=== PATIENT | male | born 1980 | race Caucasian/White ===

== ENCOUNTER → 2016-06-12 | Outpatient (REF) | payer OTHER | LOC: M LAB REF 18:58 | PROVIDERS: ATTEND Physician Assistant | DX: J02.9 Acute pharyngitis, unspecified (principal) ==

== ENCOUNTER → 2016-12-28 | Outpatient (REF) | payer OTHER, BC | LOC: M LAB REF 16:45 | PROVIDERS: ATTEND Physician Assistant | DX: R19.7 Diarrhea, unspecified (principal) ==

== ENCOUNTER → 2017-11-11 | Outpatient (REF) | payer OTHER ==
[2017-11-11 12:25] LABS: CHOLESTEROL LEVEL 129 MG/DL (<200); CHOLESTEROL RISK RATIO 3.071 (<5); HDL CHOLESTEROL 42 MG/DL (>40); NON-HDL-C 87 MG/DL; TRIGLYCERIDES LEVEL 70 MG/DL (<150)
[2017-11-11 13:28] LABS: ESTIMATED AVERAGE GLUCOSE 105 MG/DL (60-110); HEMOGLOBIN A1c 5.3 %; TOTAL 25(OH) VITAMIN D 38.5 NG/ML (30.0-100.0)
[2017-11-11 13:30] LABS: TESTOSTERONE 258 NG/DL (241-827)
== END ==
LOC: M SFHCPLAZ 09:30
DX: Z13.1 Encounter for screening for diabetes mellitus (principal); Z13.220 Encounter for screening for lipoid disorders; R68.82 Decreased libido

== ENCOUNTER → 2019-06-11 | Outpatient (CLI) | payer BC, OTHER ==
--- NOTE | 2019-06-11 10:06 | REP ---
Clinical: Lower abdominal pain. Technique: Upright view of the chest with supine and upright views of the abdomen and pelvis. Findings: Frontal upright view of the chest demonstrates no acute cardiopulmonary process or free air below the diaphragm to suspect pneumoperitoneum. Supine and upright views of the abdomen and pelvis demonstrate nonspecific bowel gas pattern without obstruction or perforation. No organomegaly. No abnormal calcifications. Skeletal structures normal for age. Impression: Nonspecific bowel gas pattern. Electronically Signed by Kendrick Her MD 06/11/2019 09:58 A
== END ==
LOC: M ADAMS 09:30
PROVIDERS: ATTEND Physician Assistant
DX: R10.30 Lower abdominal pain, unspecified (principal)

== ENCOUNTER → 2019-06-11 | Outpatient (CLI) | payer OTHER ==
[2019-06-11 11:34] LABS: BASO # 0.1 10^3/uL (0.0-0.2); EOS # 0.3 10^3/uL (0.0-0.5); EOS % 4.5 % (0.0-3.0); HEMATOCRIT 44.2 % (42.0-52.0); HEMOGLOBIN 15.4 g/dl (13.5-17.5); LYMPH # 1.9 10^3/uL (1.5-5.0); LYMPH % 29.9 % (24.0-44.0); MEAN CORPUSCULAR HGB CONC 34.8 g/dl (32.0-36.5); MONO # 0.5 10^3/uL (0.0-0.8); MONO % 8.1 % (0.0-5.0); NEUTROPHILS # 3.5 10^3/uL (1.5-8.5); NEUTROPHILS % 56.2 % (36.0-66.0); PLATELET COUNT, AUTOMATED 240 10^3/uL (150-450); RED BLOOD COUNT 5.14 10^6/uL (4.30-6.10); WHITE BLOOD COUNT 6.3 10^3/uL (4.0-10.0)
[2019-06-11 11:42] LABS: ALT/SGPT 44 U/L (12-78); BILIRUBIN,TOTAL 1.3 MG/DL (0.2-1.0); BLOOD UREA NITROGEN 14 MG/DL (7-18); CARBON DIOXIDE LEVEL 29 MEQ/L (21-32); CHLORIDE LEVEL 106 MEQ/L (98-107); CREATININE FOR GFR 0.98 MG/DL (0.70-1.30); GLOMERULAR FILTRATION RATE > 60.0 (>60); GLUCOSE, FASTING 102 MG/DL (70-100); LIPASE 212 U/L (73-393); POTASSIUM SERUM 4.2 MEQ/L (3.5-5.1); SODIUM LEVEL 142 MEQ/L (136-145); TOTAL PROTEIN 7.4 GM/DL (6.4-8.2)
== END ==
LOC: M LABDRWAD 09:27
PROVIDERS: ATTEND Physician Assistant
DX: R10.30 Lower abdominal pain, unspecified (principal)

== ENCOUNTER → 2019-06-13 | Outpatient (CLI) | payer BC, OTHER ==
[~2019-06-13] MED LIST: GASTROGRAFIN SOLUTION 30ML (Q9963) As Ordered ONE; ISOVUE-370 76% 100ML VIAL (Q9967) As Ordered ONE
--- NOTE | 2019-06-13 11:53 | REP ---
Clinical: Acute lower abdominal pain. Technique: Axial contrast enhanced images from the lung bases to the pubic symphysis using oral (per protocol) and 100 ml Isovue 370 intravenous contrast material with coronal and sagittal re-formations. Comparison: None. Findings: Lung bases are clear. Visualized heart and pericardium normal. Fatty infiltration to the liver noted without focal hepatic lesion. Spleen, pancreas, gallbladder, bilateral adrenal glands and left kidney are normal. Right kidney includes 3.5 cm heterogeneous enhancing mass consistent with renal cell carcinoma unless proven otherwise. No associated adenopathy or significant perinephric stranding. The enteric system is without obstruction or acute inflammatory process. Normal terminal ileum and appendix are identified in the right lower quadrant. Pelvis demonstrates normal bladder and age appropriate prostate/seminal vesicles. No ascites. No free air. No adenopathy. Abdominal aorta normal. Musculoskeletal structures are intact without focal abnormality. Impression: 1. 3.5 cm heterogeneous enhancing right renal mass. Findings suggest renal cell carcinoma unless proven otherwise. Urology consultation recommended. No associated findings. 2. Hepatic steatosis without focal hepatic lesion. Electronically Signed by Kendrick Her MD 06/13/2019 11:44 A
== END ==
LOC: M RAD 09:21
PROVIDERS: ATTEND Physician Assistant
DX: R10.30 Lower abdominal pain, unspecified (principal); N28.89 Other specified disorders of kidney and ureter; K76.0 Fatty (change of) liver, not elsewhere classified
CPT/HCPCS: 74177; Q9963; Q9967

== ENCOUNTER → 2019-11-08 | Outpatient (CLI) | payer BC, OTHER ==
[2019-11-08 13:08] LABS: HEMATOCRIT 43.8 % (42.0-52.0); HEMOGLOBIN 15.1 g/dl (13.5-17.5); MEAN CORPUSCULAR HEMOGLOBIN 29.1 pg (27.0-33.0); MEAN CORPUSCULAR HGB CONC 34.5 g/dl (32.0-36.5); MEAN CORPUSCULAR VOLUME 84.4 fl (80.0-96.0); PLATELET COUNT, AUTOMATED 240 10^3/uL (150-450); RED BLOOD COUNT 5.19 10^6/uL (4.30-6.10); WHITE BLOOD COUNT 7.1 10^3/uL (4.0-10.0)
[2019-11-08 13:12] LABS: ALBUMIN 3.9 GM/DL (3.2-5.2); ALT/SGPT 60 U/L (12-78); BLOOD UREA NITROGEN 14 MG/DL (7-18); CALCIUM LEVEL 9.1 MG/DL (8.5-10.1); CARBON DIOXIDE LEVEL 30 MEQ/L (21-32); CHLORIDE LEVEL 102 MEQ/L (98-107); CREATININE FOR GFR 0.99 MG/DL (0.70-1.30); GLOMERULAR FILTRATION RATE > 60.0 (>60); GLUCOSE, FASTING 117 MG/DL (70-100); POTASSIUM SERUM 3.8 MEQ/L (3.5-5.1); SODIUM LEVEL 139 MEQ/L (136-145); TOTAL PROTEIN 7.8 GM/DL (6.4-8.2)
== END ==
LOC: M PLALAB 09:50
PROVIDERS: ATTEND Internal Medicine
DX: I10 Essential (primary) hypertension (principal); Z85.528 Personal history of other malignant neoplasm of kidney

== ENCOUNTER → 2020-01-30 | Outpatient (CLI) | payer BC, OTHER ==
[2020-01-30 14:15] LABS: BLOOD UREA NITROGEN 19 MG/DL (7-18); CALCIUM LEVEL 9.5 MG/DL (8.5-10.1); CARBON DIOXIDE LEVEL 26 MEQ/L (21-32); CHLORIDE LEVEL 103 MEQ/L (98-107); CREATININE FOR GFR 1.05 MG/DL (0.70-1.30); GLOMERULAR FILTRATION RATE > 60.0 (>60); GLUCOSE, FASTING 122 MG/DL (70-100); SODIUM LEVEL 136 MEQ/L (136-145)
== END ==
LOC: M PLALAB 09:12
PROVIDERS: ATTEND Urology
DX: C64.1 Malignant neoplasm of right kidney, except renal pelvis (principal)

== ENCOUNTER → 2020-04-25 | Outpatient (REF) | payer OTHER | LOC: M SFHCPLAZ 14:37 | PROVIDERS: ATTEND Internal Medicine | DX: M10.9 Gout, unspecified (principal) ==

== ENCOUNTER → 2020-07-18 | Outpatient (CLI) | payer OTHER ==
[2020-07-18 10:26] LABS: BLOOD UREA NITROGEN 20 MG/DL (7-18); CALCIUM LEVEL 9.1 MG/DL (8.5-10.1); CARBON DIOXIDE LEVEL 33 MEQ/L (21-32); CHLORIDE LEVEL 99 MEQ/L (98-107); CREATININE FOR GFR 0.98 MG/DL (0.70-1.30); GLOMERULAR FILTRATION RATE > 60.0 (>60); GLUCOSE, FASTING 113 MG/DL (70-100); POTASSIUM SERUM 4.1 MEQ/L (3.5-5.1); SODIUM LEVEL 137 MEQ/L (136-145)
== END ==
LOC: M PLALAB 08:37
PROVIDERS: ATTEND Urology
DX: C64.1 Malignant neoplasm of right kidney, except renal pelvis (principal)

== ENCOUNTER 2020-08-08 10:08 | Emergency (ER) | payer BC, OTHER ==
[~2020-08-08] VITALS: Ht 193 cm; Wt 174.3 kg
[2020-08-08] MEDS ORDERED: COLC0.6T47 PO (10:26)
[2020-08-08] MEDS ORDERED: LISI20TA33 PO (10:26)
[2020-08-08] MEDS ORDERED: CHLO25TA PO (10:26)
[2020-08-08] MEDS ORDERED: ZYLO300T6 PO (10:26)
[2020-08-08] MEDS ORDERED: FURO20TA2 PO (10:26)
[2020-08-08 12:05] LABS: BILIRUBIN, URINE MANUAL NEGATIVE (NEGATIVE); GLUCOSE, URINE (UA) MANUAL NEGATIVE (NEGATIVE); KETONE, URINE MANUAL NEGATIVE (NEGATIVE); UROBILINOGEN, URINE MANUAL NORMAL (NORMAL)
[2020-08-08 12:10] LABS: BASO # 0.1 10^3/uL (0.0-0.2); BASO % 0.7 % (0.0-1.0); EOS # 0.3 10^3/uL (0.0-0.5); EOS % 4.2 % (0.0-3.0); HEMATOCRIT 45.7 % (42.0-52.0); HEMOGLOBIN 16.3 g/dl (13.5-17.5); LYMPH # 1.8 10^3/uL (1.5-5.0); LYMPH % 22.2 % (24.0-44.0); MEAN CORPUSCULAR HEMOGLOBIN 30.4 pg (27.0-33.0); MEAN CORPUSCULAR HGB CONC 35.7 g/dl (32.0-36.5); MEAN CORPUSCULAR VOLUME 85.3 fl (80.0-96.0); MONO # 0.6 10^3/uL (0.0-0.8); MONO % 7.5 % (2.0-8.0); NEUTROPHILS # 5.3 10^3/uL (1.5-8.5); PLATELET COUNT, AUTOMATED 281 10^3/uL (150-450); RED BLOOD COUNT 5.36 10^6/uL (4.30-6.10); WHITE BLOOD COUNT 8.2 10^3/uL (4.0-10.0)
--- NOTE | 2020-08-08 12:26 | REP ---
INDICATION: ruq/flank pain. FINDINGS: Multiple ultrasonographic images of the liver show the hepatic parenchymal echo texture to appear unremarkable. There are no focal masses. There is no intrahepatic ductal dilatation. The common bile duct measures approximately 5.6 mm in its greatest transverse dimension. Multiple ultrasonographic images of the gallbladder show no focal or diffuse gallbladder wall thickening. There are no echogenic foci within the gallbladder lumen, which casts acoustic shadows. There is no pericholecystic edema. Images of the pancreatic region show no gross abnormality. The imaged portion of the right kidney is unremarkable. The patient is status post partial right nephrectomy IMPRESSION: Unremarkable right upper quadrant ultrasound. Accredited by the [employer] in General Ultrasound. <Electronically signed by Curt Golden > 08/08/20 1998
[2020-08-08 12:29] LABS: ALBUMIN 4.4 GM/DL (3.2-5.2); BILIRUBIN,DIRECT 0.4 MG/DL (0.0-0.2); BILIRUBIN,TOTAL 1.3 MG/DL (0.2-1.0); TOTAL PROTEIN 8.2 GM/DL (6.4-8.2)
[2020-08-08] MEDS ORDERED: KETO10TAB PO (13:29)
[2020-08-08 13:45] VITALS: BP 141/84
== END 2020-08-08 13:48 | disposition home or self-care (01) ==
LOC: M ED 10:08
DX: M54.6 Pain in thoracic spine (principal); Z85.528 Personal history of other malignant neoplasm of kidney; Z90.5 Acquired absence of kidney

== ENCOUNTER → 2020-09-17 | Outpatient (REF) | payer OTHER ==
[~2020-09-17] MED LIST changes: +CHLO25TA PO; +COLC0.6T47 PO; +FURO20TA2 PO; -GASTROGRAFIN SOLUTION 30ML (Q9963) As Ordered ONE; -ISOVUE-370 76% 100ML VIAL (Q9967) As Ordered ONE; +KETO10TAB PO; +LISI20TA33 PO; +ZYLO300T6 PO
[2020-09-17 18:50] LABS: ALT/SGPT 73 U/L (12-78); BILIRUBIN,TOTAL 1.2 MG/DL (0.2-1.0); BLOOD UREA NITROGEN 18 MG/DL (7-18); CARBON DIOXIDE LEVEL 31 MEQ/L (21-32); CHLORIDE LEVEL 104 MEQ/L (98-107); CHOLESTEROL LEVEL 149 MG/DL (<200); CHOLESTEROL RISK RATIO 3.465 (<5); CREATININE FOR GFR 1.05 MG/DL (0.70-1.30); GLOMERULAR FILTRATION RATE > 60.0 (>60); GLUCOSE, FASTING 72 MG/DL (70-100); HDL CHOLESTEROL 43 MG/DL (>40); LDL CHOLESTEROL 70 MG/DL (<100); MAGNESIUM LEVEL 1.8 MG/DL (1.8-2.4); NON-HDL-C 106 MG/DL; POTASSIUM SERUM 3.7 MEQ/L (3.5-5.1); SODIUM LEVEL 141 MEQ/L (136-145); TOTAL PROTEIN 7.4 GM/DL (6.4-8.2); TRIGLYCERIDES LEVEL 179 MG/DL (<150); URIC ACID 6.7 MG/DL (3.5-7.2)
[2020-09-17 18:53] LABS: HEPATITIS B SURFACE ANTIBODY POSITIVE (POSITIVE)
[2020-09-17 19:04] LABS: HEPATITIS B SURFACE ANTIGEN NEGATIVE (NEGATIVE)
== END ==
LOC: M SFHCPLAZ 15:45
PROVIDERS: ATTEND Internal Medicine
DX: I10 Essential (primary) hypertension (principal); R79.89 Other specified abnormal findings of blood chemistry; M10.9 Gout, unspecified; G57.91 Unspecified mononeuropathy of right lower limb

== ENCOUNTER → 2020-09-18 | Outpatient (CLI) | payer BC, OTHER ==
--- NOTE | 2020-09-18 14:20 | REP ---
INDICATION: RT LEG PAIN SWELLING ? DVT COMPARISON: None. TECHNIQUE: Domínguez scale and color Doppler evaluation using linear high frequency transducer. FINDINGS: Ultrasound examination of the right lower extremity deep venous structures from the common femoral vein to the popliteal vein demonstrates normal compressibility flow and wave patterns in response to respiration and augmentation. There is no evidence for deep venous thrombosis. IMPRESSION: No evidence for deep venous thrombosis. <Electronically signed by Kendrick Her > 09/18/20 [id number]
== END ==
LOC: M RAD 13:32
PROVIDERS: ATTEND Internal Medicine
DX: R60.0 Localized edema (principal)

== ENCOUNTER → 2020-10-08 | Outpatient (CLI) | payer BC, OTHER ==
--- NOTE | 2020-10-09 06:45 | REPPI ---
INDICATION: M79.672 FOOT PAIN LEFT COMPARISON: None. TECHNIQUE: AP, lateral, bilateral oblique views left foot. FINDINGS: The osseous structures and joint spaces are intact and normal. There is no evidence for acute fracture or dislocation. Lateral view suggests soft tissue swelling overlying the metatarsal region. No subcutaneous emphysema or radiodense foreign body. Incidental calcaneal heel spur noted. No plantar calcifications are identified. IMPRESSION: Soft tissue swelling. No obvious fracture or dislocation. <Electronically signed by Kendrick Her > 10/09/20 [id number]
--- NOTE | 2020-10-09 06:48 | REPPI ---
INDICATION: M25.472 SWELLING OF LEFT ANKLE JOINT COMPARISON: None. TECHNIQUE: AP, lateral, bilateral oblique views. FINDINGS: Generalized soft tissue swelling. No acute fracture or dislocation. Skeletal structures and joint spaces are intact and normal. Ankle mortise appears stable. No subcutaneous emphysema or radiodense foreign body. Incidental calcaneal heel spur noted. IMPRESSION: Moderate diffuse soft tissue swelling. <Electronically signed by Kendrick Her > 10/09/20 [id number]
== END ==
LOC: M PLAIMG 12:14
PROVIDERS: ATTEND Physician Assistant
DX: M25.472 Effusion, left ankle (principal); M79.672 Pain in left foot; M79.89 Other specified soft tissue disorders

== ENCOUNTER → 2020-10-08 | Outpatient (REF) | payer OTHER ==
[2020-10-08 15:21] LABS: BASO % 0.7 % (0.0-1.0); EOS # 0.2 10^3/uL (0.0-0.5); EOS % 2.8 % (0.0-3.0); HEMATOCRIT 39.6 % (42.0-52.0); LYMPH # 1.3 10^3/uL (1.5-5.0); LYMPH % 22.2 % (24.0-44.0); MEAN CORPUSCULAR HEMOGLOBIN 29.8 pg (27.0-33.0); MEAN CORPUSCULAR HGB CONC 35.4 g/dl (32.0-36.5); MEAN CORPUSCULAR VOLUME 84.3 fl (80.0-96.0); MONO # 0.3 10^3/uL (0.0-0.8); MONO % 5.5 % (2.0-8.0); NEUTROPHILS # 4.1 10^3/uL (1.5-8.5); NEUTROPHILS % 68.5 % (36.0-66.0); PLATELET COUNT, AUTOMATED 250 10^3/uL (150-450)
[2020-10-08 15:47] LABS: C REACTIVE PROTEIN QUANTITATIV 1.87 MG/DL (0.00-0.30); URIC ACID 6.5 MG/DL (3.5-7.2)
[2020-10-08 15:50] LABS: ERYTHROCYTE SEDIMENTATION RATE 17 mm/hr (0-15)
== END ==
LOC: M SFHCPLAZ 12:14
PROVIDERS: ATTEND Physician Assistant
DX: M25.472 Effusion, left ankle (principal); M79.672 Pain in left foot

== ENCOUNTER 2021-03-29 09:20 | Emergency (ER) | payer BC, OTHER ==
[~2021-03-29] VITALS: Ht 190.5 cm; Wt 163.6 kg
--- OUTSIDE RECORDS SUMMARY | 2021-03-29 09:28 | CCD ---
Author Author [facility] Organization [facility] Address Unknown Phone Unavailable Care Team Providers Care Material Crew Supervisor Name Role Phone Cedrick JAMESON MD Unavailable Unavailable Cedrick JAMESON MD Unavailable Unavailable Cedrick JAMESON MD Unavailable Unavailable Cedrick JAMESON MD Unavailable Unavailable Cedrick JAMESON MD Unavailable Unavailable Cedrick JAMESON MD Unavailable Unavailable Cedrick JAMESON MD Unavailable Unavailable Cedrick JAMESON MD Unavailable Unavailable Cedrick JAMESON MD Unavailable Unavailable Cedrick JAMESON MD Unavailable Unavailable Cedrick JAMESON MD Unavailable Unavailable Cedrick JAMESON MD Unavailable Unavailable Cedrick JAMESON MD Unavailable Unavailable Cedrick JAMESON MD Unavailable Unavailable Cedrick JAMESON MD Unavailable Unavailable Cedrick JAMESON MD Unavailable Unavailable Cedrick JAMESON MD Unavailable Unavailable Cedrick JAMESON MD Unavailable Unavailable Cedrick JAMESON MD Unavailable Unavailable Cedrick JAMESON MD Unavailable Unavailable Cedrick JAMESON MD Unavailable Unavailable Cedrick JAMESON MD Unavailable Unavailable Cedrick JAMESON MD Unavailable Unavailable Cedrick JAMESON MD Unavailable Unavailable Thabet, Nagib RPA-C Unavailable Unavailable Thabet, Nagib RPA-C Unavailable Unavailable Thabet, Nagib RPA-C Unavailable Unavailable Thabet, Nagib RPA-C Unavailable Unavailable Thabet, Nagib RPA-C Unavailable Unavailable Thabet, Nagib RPA-C Unavailable Unavailable Thabet, Nagib RPA-C Unavailable Unavailable Thabet, Nagib RPA-C Unavailable Unavailable Thabet, Nagib RPA-C Unavailable Unavailable Thabet, Nagib RPA-C Unavailable Unavailable Thabet, Nagib RPA-C Unavailable Unavailable Thabet, Nagib RPA-C Unavailable Unavailable Thabet, Nagib RPA-C Unavailable Unavailable Thabet, Nagib RPA-C Unavailable Unavailable Thabet, Nagib RPA-C Unavailable Unavailable Thabet, Nagib RPA-C Unavailable Unavailable Thabet, Nagib RPA-C Unavailable Unavailable Thabet, Nagib RPA-C Unavailable Unavailable Thabet, Nagib RPA-C Unavailable Unavailable Thabet, Nagib RPA-C Unavailable Unavailable Thabet, Nagib RPA-C Unavailable Unavailable Thabet, Nagib RPA-C Unavailable Unavailable Thabet, Nagib RPA-C Unavailable Unavailable Thabet, Nagib RPA-C Unavailable Unavailable Thabet, Nagib RPA-C Unavailable Unavailable Thabet, Nagib RPA-C Unavailable Unavailable Thabet, Nagib RPA-C Unavailable Unavailable Jaylin PINA MD Unavailable Unavailable Jaylin PINA MD Unavailable Unavailable Jaylin PINA MD Unavailable Unavailable Jaylin PINA MD Unavailable Unavailable Jaylin PINA MD Unavailable Unavailable Jaylin PINA MD Unavailable Unavailable Jaylin PINA MD Unavailable Unavailable Jaylin PINA MD Unavailable Unavailable Jaylin PINA MD Unavailable Unavailable Jaylin PINA MD Unavailable Unavailable Jaylin PINA MD Unavailable Unavailable Jaylin PINA MD Unavailable Unavailable Jaylin PINA MD Unavailable Unavailable Jaylin PINA MD Unavailable Unavailable Jaylin PINA MD Unavailable Unavailable Jaylin PINA MD Unavailable Unavailable Jaylin PINA MD Unavailable Unavailable Jaylin PINA MD Unavailable Unavailable Jaylin PINA MD Unavailable Unavailable Jaylin PINA MD Unavailable Unavailable Jaylin PINA MD Unavailable Unavailable Jaylin PINA MD Unavailable Unavailable Jaylin PINA MD Unavailable Unavailable Jaylin PINA MD Unavailable Unavailable Jaylin PINA MD Unavailable Unavailable Jaylin PINA MD Unavailable Unavailable Jaylin PINA MD Unavailable Unavailable Jaylin PINA MD Unavailable Unavailable Jaylin PINA MD Unavailable Unavailable Jaylin PINA MD Unavailable Unavailable Jaylin PINA MD Unavailable Unavailable Jaylin PINA MD Unavailable Unavailable Jaylin PINA MD Unavailable Unavailable Jaylin PINA MD Unavailable Unavailable Jaylin PINA MD Unavailable Unavailable Jaylin PINA MD Unavailable Unavailable Jaylin PINA MD Unavailable Unavailable Jaylin PINA MD Unavailable Unavailable Jaylin PINA MD Unavailable Unavailable Jaylin PINA MD Unavailable Unavailable Jaylin PINA MD Unavailable Unavailable Jaylin PINA MD Unavailable Unavailable Enriquez, Gavin Unavailable Unavailable Enriquez, Gavin Unavailable Unavailable Enriquez, Gavin Unavailable Unavailable Enriquez, Gavin Unavailable Unavailable Enriquez, Gavin Unavailable Unavailable Enriquez, Gavin Unavailable Unavailable Enriquez, Gavin Unavailable Unavailable Enriquez, Gavin Unavailable Unavailable Enriquez, Gavin Unavailable Unavailable Enriquez, Gavin Unavailable Unavailable Enriquez, Gavin Unavailable Unavailable Enriquez, Gavin Unavailable Unavailable Enriquez, Gavin Unavailable Unavailable Enriquez, Gavin Unavailable Unavailable Enriquez, Gavin Unavailable Unavailable Enriquez, Gavin Unavailable Unavailable Enriquez, Gavin Unavailable Unavailable Enriquez, Gavin Unavailable Unavailable Enriquez, Gavin Unavailable Unavailable Enriquez, Gavin Unavailable Unavailable Enriquez, Gavin Unavailable Unavailable Enriquez, Gavin Unavailable Unavailable Enriquez, Gavin Unavailable Unavailable Enriquez, Gavin Unavailable Unavailable Enriquez, Gavin Unavailable Unavailable Enriquez, Gavin Unavailable Unavailable Enriquez, Gavin Unavailable Unavailable Enriquez, Gavin Unavailable Unavailable Enriquez, Gavin Unavailable Unavailable Enriquez, Gavin Unavailable Unavailable Enriquez, Gavin Unavailable Unavailable Enriquez, Gavin Unavailable Unavailable Enriquez, Gavin Unavailable Unavailable Enriquez, Gavin Unavailable Unavailable Enriquez, Gavin Unavailable Unavailable Enriquez, Gavin Unavailable Unavailable Enriquez, Gavin Unavailable Unavailable Enriquez, Gavin Unavailable Unavailable Enriquez, Gavin Unavailable Unavailable Enriquez, Gavin Unavailable Unavailable Enriquez, Gavin Unavailable Unavailable Enriquez, Gavin Unavailable Unavailable Enriquez, Gavin Unavailable Unavailable Enriquez, Gavin Unavailable Unavailable Enriquez, Gavin Unavailable Unavailable Enriquez, Gavin Unavailable Unavailable Enriquez, Gavin Unavailable Unavailable Enriquez, Gavin Unavailable Unavailable Enriquez, Gavin Unavailable Unavailable Enriquez, Gavin Unavailable Unavailable Enriquez, Gavin Unavailable Unavailable Enriquez, Gavin Unavailable Unavailable Enriquez, Gavin Unavailable Unavailable Enriquez, Gavin Unavailable Unavailable Enriquez, Gavin Unavailable Unavailable Enriquez, Gavin Unavailable Unavailable Enriquez, Gavin Unavailable Unavailable Enriquez, Gavin Unavailable Unavailable Enriquez, Gavin Unavailable Unavailable Enriquez, Gavin Unavailable Unavailable Enriquez, Gavin Unavailable Unavailable Enriquez, Gavin Unavailable Unavailable Enriquez, Gavin Unavailable Unavailable Enriquez, Gavin Unavailable Unavailable Enriquez, Gavin Unavailable Unavailable Enriquez, Gavin Unavailable Unavailable Enriquez, Gavin Unavailable Unavailable Enriquez, Gavin Unavailable Unavailable Enriquez, Gavin Unavailable Unavailable Enriquez, Gavin Unavailable Unavailable Enriquez, Gavin Unavailable Unavailable Enriquez, Gavin Unavailable Unavailable Enriquez, Gavin Unavailable Unavailable Enriquez, Gavin Unavailable Unavailable Enriquez, Gavin Unavailable Unavailable Enriquez, Gavin Unavailable Unavailable Enriquez, Gavin Unavailable Unavailable Enriquez, Gavin Unavailable Unavailable Enriquez, Gavin Unavailable Unavailable EANNIELLO, L CHON FURNACE COMBUSTION ANALYST Unavailable Unavailable EANNIELLO, L CHON FURNACE COMBUSTION ANALYST Unavailable Unavailable EANNIELLO, L CHON FURNACE COMBUSTION ANALYST Unavailable Unavailable EANNIELLO, L CHON FURNACE COMBUSTION ANALYST Unavailable Unavailable EANNIELLO, L CHON FURNACE COMBUSTION ANALYST Unavailable Unavailable EANNIELLO, L CHON FURNACE COMBUSTION ANALYST Unavailable Unavailable EANNIELLO, L CHON FURNACE COMBUSTION ANALYST Unavailable Unavailable EANNIELLO, L CHON FURNACE COMBUSTION ANALYST Unavailable Unavailable EANNIELLO, L CHON FURNACE COMBUSTION ANALYST Unavailable Unavailable EANNIELLO, L CHON FURNACE COMBUSTION ANALYST Unavailable Unavailable EANNIELLO, L CHON FURNACE COMBUSTION ANALYST Unavailable Unavailable EANNIELLO, L CHON FURNACE COMBUSTION ANALYST Unavailable Unavailable EANNIELLO, L CHON FURNACE COMBUSTION ANALYST Unavailable Unavailable EANNIELLO, L CHON FURNACE COMBUSTION ANALYST Unavailable Unavailable EANNIELLO, L CHON FURNACE COMBUSTION ANALYST Unavailable Unavailable EANNIELLO, L CHON FURNACE COMBUSTION ANALYST Unavailable Unavailable EANNIELLO, L CHON FURNACE COMBUSTION ANALYST Unavailable Unavailable EANNIELLO, L CHON FURNACE COMBUSTION ANALYST Unavailable Unavailable EANNIELLO, L CHON FURNACE COMBUSTION ANALYST Unavailable Unavailable EANNIELLO, L CHON FURNACE COMBUSTION ANALYST Unavailable Unavailable EANNIELLO, L CHON FURNACE COMBUSTION ANALYST Unavailable Unavailable EANNIELLO, L CHON FURNACE COMBUSTION ANALYST Unavailable Unavailable EANNIELLO, L CHON FURNACE COMBUSTION ANALYST Unavailable Unavailable EANNIELLO, L CHON FURNACE COMBUSTION ANALYST Unavailable Unavailable EANNIELLO, L CHON FURNACE COMBUSTION ANALYST Unavailable Unavailable EANNIELLO, L CHON FURNACE COMBUSTION ANALYST Unavailable Unavailable EANNIELLO, L CHON FURNACE COMBUSTION ANALYST Unavailable Unavailable EANNIELLO, L CHON FURNACE COMBUSTION ANALYST Unavailable Unavailable EANNIELLO, L CHON FURNACE COMBUSTION ANALYST Unavailable Unavailable EANNIELLO, L CHON FURNACE COMBUSTION ANALYST Unavailable Unavailable EANNIELLO, L CHON FURNACE COMBUSTION ANALYST Unavailable Unavailable EANNIELLO, L CHON FURNACE COMBUSTION ANALYST Unavailable Unavailable EANNIELLO, L CHON FURNACE COMBUSTION ANALYST Unavailable Unavailable EANNIELLO, L CHON FURNACE COMBUSTION ANALYST Unavailable Unavailable EANNIELLO, L CHON FURNACE COMBUSTION ANALYST Unavailable Unavailable Re-disclosure Warning The records that you are about to access may contain information from federally-assisted alcohol or drug abuse programs. If such information is present, then the following federally mandated warning applies: This information has been disclosed to you from records protected by federal confidentiality rules (42 CFR part 2). The federal rules prohibit you from making any further disclosure of this information unless further disclosure is expressly permitted by the written consent of the person to whom it pertains or as otherwise permitted by 42 CFR part 2. A general authorization for the release of medical or other information is NOT sufficient for this purpose. The Federal rules restrict any use of the information to criminally investigate or prosecute any alcohol or drug abuse patient.The records that you are about to access may contain highly sensitive health information, the redisclosure of which is protected by Article 27-F of the [facility] Public Health law. If you continue you may have access to information: Regarding HIV / AIDS; Provided by facilities licensed or operated by the [facility] Office of Mental Health; or Provided by the [facility] Office for People With Developmental Disabilities. If such information is present, then the following [facility] mandated warning applies: This information has been disclosed to you from confidential records which are protected by state law. State law prohibits you from making any further disclosure of this information without the specific written consent of the person to whom it pertains, or as otherwise permitted by law. Any unauthorized further disclosure in violation of state law may result in a fine or assisted sentence or both. A general authorization for the release of medical or other information is NOT sufficient authorization for further disc losure. Family History Family Member Name Family Member Gender Family Member Status Date o f Status Description Data Source(s) Unknown Unknown Problem [facility] ([facility]) Encounters Encounter Providers Location Date Indications Data Source(s ) Outpatient Attender: Gavin Enriquez 05/20/2021 12:00:00 AM E [facility] Outpatient Attender: Ginger Bailey RPA-C 05/2020 12:00:07 PM EDT - 12/27/2020 01:24:01 PM EDT [facility] ([facility]) [place] [address] [facility] [facility] [address] 11/26/2020 12:00:00 AM EDT [facility]CW1 ([facility]) [place] [address] [facility] [facility] [address] 10/09/2020 12:00:00 AM EDT eCW1 ([facility]) Out[place] [address] [facility] [address] 10/08/2020 12:00:00 AM EDT eCW1 ([facility]) [place] [address] [facility] [address] 10/08/2020 12:00:00 AM EDT eCW1 ([facility]) Outpatient Attender: BLANCA JAMESON MD 10/05 12:41:42 PM EDT - 10/05/2020 02:10:11 PM EDT [facility] ([facility] ) [place] [address] [facility] [facility] [address] 10/05/2020 12:00:00 AM EDT eCW1 ([facility]) [place] [address] [facility] [address] 09/17/2020 12:00:00 AM EDT eCW1 ([facility]) Outpatient Attender: Gavin Enriquez [id number] 12:00:00 AM EDT - 08/17/2020 09:34:29 AM [facility] Outpatient Referrer: CHON BRANCH NP 07/31/2020 1 2:00:00 AM EDT Personal history of other malignant neoplasm of kidney [facility] Personal history of other malignant neop lasm of kidney [place] [address] [facility] [address] 07/10/2020 12:00:00 AM EDT eCW1 ([facility]) [place] [address] [facility] [place] [address] 06/12/2020 12:00:00 AM EST eCW1 ([facility]) [place] [address] [facility] [place] [address] 06/04/2020 12:00:00 AM EST eCW1 ([facility]) [place] [address] [facility] [place] [address] 05/01/2020 12:00:00 AM EST eCW1 ([facility]) Outpatient [address] [facility] [place] [address] 04/25/2020 12:00:00 AM EST eCW1 ([facility]) Outpatient Attender: Gavin EnriquezReferrer: NGA Tom [id number] 02/17/2020 12:00:00 AM [facility] Outpatient Referrer: Gavin Enriquez 02/15/2020 12:00:00 AM [facility] Outpatient Referrer: Gavin Enriquez 02/13/2020 12:00:0 0 AM EDT Malignant neoplasm of right kidney, except renal pelvis [facility] Malignant neoplasm of right kidney, exce pt renal pelvis Medications Medication Brand Name Start Date Product Form Dose Route Admi nistrative Instructions Pharmacy Instructions Status Indications Reaction Description Data Source(s) 20 mg 02/12/2021 12:00:00 AM EDT tablet 36 TAKE 1 TABLET BY MOUTH THURSDAY,THURSDAY AND THURSDAY TAKE 1 TABLET BY MOUTH THURSDAY,THURSDAY AND THURSDAY SOLD: 02/15/2021 [facility] 20 mg 01/10/2021 12:00:00 AM EDT tablet 36 TAKE 1 TABLET BY MOUTH ONCE A DAY ON THURSDAY, THURSDAY AND THURSDAY TAKE 1 TABLET BY MOUTH ONCE A DAY ON Thu, THURSDAY AND THURSDAY SOLD: 01/10/2021 [facility] Cephalexin 500 MG Oral Capsule CEPHALEXIN 12/27/2020 12:00:00 AM EDT capsule 21 TAKE ONE CAPSULE BY MOUTH THREE TIMES A DAY FOR 7 DAYS TAKE ONE CAPSULE BY MOUTH THREE TIMES A DAY FOR 7 DAYS SOLD: 12/28/2020 [facility] 20 mg 11/26/2020 12:00:00 AM EDT tablet 36 TAKE 1 TABLET BY MOUTH ONCE DAILY ON THURSDAY,THURSDAY AND THURSDAY TAKE 1 TABLET BY MOUTH ONCE DAILY ON THURSDAY,THURSDAY AND THURSDAY SOLD: 11/27/2020 [facility] 100 mg 09/18/2020 12:00:00 AM EDT tablet 90 TAKE ONE TABLET BY MOUTH EVERY DAY TAKE ONE TABLET BY MOUTH EVERY DAY SOLD: 03/20/2021 [facility] 100 mg 09/18/2020 12:00:00 AM EDT tablet 90 TAKE ONE TABLET BY MOUTH EVERY DAY TAKE ONE TABLET BY MOUTH EVERY DAY SOLD: 09/20/2020 [facility] 100 mg 09/18/2020 12:00:00 AM EDT tablet 90 TAKE ONE TABLET BY MOUTH EVERY DAY TAKE ONE TABLET BY MOUTH EVERY DAY SOLD: 12/15/2020 [facility] Losartan Potassium 100 MG Oral Tablet Losartan Potassium 100 MG 09/17/2020 12:00:00 AM EDT 1.0 {tablet} active Lo sartan Potassium 100 MG eCW1 ([facility]) Losartan Potassium 100 MG Oral Tablet Losartan Potassium 100 MG 09/17/2020 12:00:00 AM EDT 1.0 {tablet} active Lo sartan Potassium 100 MG eCW1 ([facility]) Losartan Potassium 100 MG Oral Tablet Losartan Potassium 100 MG 09/17/2020 12:00:00 AM EDT 1.0 {tablet} active Lo sartan Potassium 100 MG eCW1 ([facility]) Losartan Potassium 100 MG Oral Tablet Losartan Potassium 100 MG 09/17/2020 12:00:00 AM EDT 1.0 {tablet} active Lo sartan Potassium 100 MG eCW1 ([facility]) Losartan Potassium 100 MG Oral Tablet Losartan Potassium 100 MG 09/17/2020 12:00:00 AM EDT 1.0 {tablet} active Lo sartan Potassium 100 MG eCW1 ([facility]) Losartan Potassium 100 MG Oral Tablet Losartan Potassium 100 MG 09/17/2020 12:00:00 AM EDT 1.0 {tablet} active Lo sartan Potassium 100 MG eCW1 ([facility]) 10 mg 08/08/2020 12:00:00 AM EDT tablet 15 TAKE ONE TABLET BY MOUTH EVERY 8 HOURS NEEDED FOR PAIN TAKE ONE TABLET BY MOUTH EVERY 8 HOURS A S NEEDED FOR PAIN SOLD: 08/09/2020 [facility] iohexol (OMNIPAQUE) 300 MG/ML contrast injection 100 mL 1776 07/31/2020 10:30:00 AM EDT 100 mL Intravenous completed 100 mL, Intravenous, 1 TIME IMAGING, [facility] 07/31/20 at 1030, For 1 dose, Imaging [facility] Medication administered onsite 0.6 mg 07/11/2020 12:00:00 AM EDT tablet 30 TAKE ONE TABLET BY MOUTH ONCE DAILY FOR 30 DAYS THEN STOP DIRECTED TAKE ONE TABLET BY MOUTH ONCE DAILY FOR 30 DAYS THEN STOP DIRECTED SOLD: 07/13/2020 [facility] 0.6 mg 07/11/2020 12:00:00 AM EDT tablet 30 TAKE ONE TABLET BY MOUTH ONCE DAILY FOR 30 DAYS THEN STOP DIRECTED TAKE ONE TABLET BY MOUTH ONCE DAILY FOR 30 DAYS THEN STOP DIRECTED SOLD: 08/08/2020 [facility] 20 mg 07/10/2020 12:00:00 AM EDT tablet 5 TAKE ONE TABLET BY MOUTH ONCE A DAY TAKE ONE TABLET BY MOUTH ONCE A DAY SOLD: 07/13/2020 [facility] Prednisone 20 MG Oral Tablet PredniSONE 20 MG PredniSONE 20 MG 07/10/2020 12:00:00 AM EDT 1.0 {tablet} active Pr edniSONE 20 MG eCW1 ([facility]) 300 mg 06/13/2020 12:00:00 AM EST tablet 45 TAKE ONE-HALF TABLET BY MOUTH ONCE DAILY TAKE ONE-HALF TABLET BY MOUTH ONCE DAILY SOLD: 11/20/2020 [facility] 0.6 mg 06/13/2020 12:00:00 AM EST tablet 30 TAKE ONE TABLET BY MOUTH EVERY DAY FOR 30 DAYS THEN STOP TAKE ONE TABLET BY MOUTH EVERY DAY FOR 3 0 DAYS THEN STOP SOLD: 06/13/2020 [facility] 300 mg 06/13/2020 12:00:00 AM EST tablet 45 TAKE ONE-HALF TABLET BY MOUTH ONCE DAILY TAKE ONE-HALF TABLET BY MOUTH ONCE DAILY SOLD: 06/13/2020 [facility] 300 mg 06/13/2020 12:00:00 AM EST tablet 45 TAKE ONE-HALF TABLET BY MOUTH ONCE DAILY TAKE ONE-HALF TABLET BY MOUTH ONCE DAILY SOLD: 08/23/2020 [facility] Allopurinol 300 MG Oral Tablet Allopurinol 300 MG 06/12/2020 12:00: 00 AM EST active Allopurinol 300 MG eCW1 ([facility]) Allopurinol 300 MG Oral Tablet Allopurinol 300 MG 06/12/2020 12:00: 00 AM EST active Allopurinol 300 MG eCW1 ([facility]) Allopurinol 300 MG Oral Tablet Allopurinol 300 MG 06/12/2020 12:00: 00 AM EST active Allopurinol 300 MG eCW1 ([facility]) Allopurinol 300 MG Oral Tablet Allopurinol 300 MG 06/12/2020 12:00: 00 AM EST active Allopurinol 300 MG eCW1 ([facility]) Allopurinol 300 MG Oral Tablet Allopurinol 300 MG 06/12/2020 12:00: 00 AM EST active Allopurinol 300 MG eCW1 ([facility]) Colchicine 0.6 MG Oral Tablet Colchicine 0.6 MG 06/12/2020 12:00:00 AM EST 1.0 {tablet} active Colchicine 0.6 MG eCW1 ([facility]) Allopurinol 300 MG Oral Tablet Allopurinol 300 MG 06/12/2020 12:00: 00 AM EST active Allopurinol 300 MG eCW1 ([facility]) Colchicine 0.6 MG Oral Tablet Colchicine 0.6 MG 06/12/2020 12:00:00 AM EST 1.0 {tablet} active Colchicine 0.6 MG eCW1 ([facility]) Allopurinol 300 MG Oral Tablet Allopurinol 300 MG 06/12/2020 12:00: 00 AM EST active Allopurinol 300 MG eCW1 ([facility]) Allopurinol 300 MG Oral Tablet Allopurinol 300 MG 06/12/2020 12:00: 00 AM EST active Allopurinol 300 MG eCW1 ([facility]) Medrol (Jak) 4 MG Medrol (Jak) 4 MG 06/04/2020 12:00:00 AM EST active Medrol (Jak) 4 MG eCW1 ([facility]) 4 mg 06/04/2020 12:00:00 AM EST tablets,dose pack 21 USE DIRECTED USE DIRECTED SOLD: 06/04/2020 [facility] 20 mg 05/26/2020 12:00:00 AM EST tablet 30 TAKE ONE TABLET BY MOUTH EVERY DAY TAKE ONE TABLET BY MOUTH EVERY DAY SOLD: 06/24/2020 [facility] Lisinopril 20 MG Oral Tablet LISINOPRIL 05/26/2020 12:00:00 AM EST tab let 30 TAKE ONE TABLET BY MOUTH EVERY DAY TAKE ONE TABLET BY MOUTH EVERY DAY SOLD: 08/28/2020 [facility] 20 mg 05/26/2020 12:00:00 AM EST tablet 30 TAKE ONE TABLET BY MOUTH EVERY DAY TAKE ONE TABLET BY MOUTH EVERY DAY SOLD: 05/28/2020 [facility] 20 mg 05/26/2020 12:00:00 AM EST tablet 30 TAKE ONE TABLET BY MOUTH EVERY DAY TAKE ONE TABLET BY MOUTH EVERY DAY SOLD: 07/28/2020 [facility] Prednisone 20 MG Oral Tablet PredniSONE 20 MG PredniSONE 20 MG 04/25/2020 12:00:00 AM EST 1.0 {tablet} active Pr edniSONE 20 MG eCW1 ([facility]) Prednisone 20 MG Oral Tablet PredniSONE 20 MG PredniSONE 20 MG 04/25/2020 12:00:00 AM EST 1.0 {tablet} active Pr edniSONE 20 MG eCW1 ([facility]) Prednisone 20 MG Oral Tablet PredniSONE 20 MG PredniSONE 20 MG 04/25/2020 12:00:00 AM EST 1.0 {tablet} active Pr edniSONE 20 MG eCW1 ([facility]) Prednisone 20 MG Oral Tablet PredniSONE 20 MG PredniSONE 20 MG 04/25/2020 12:00:00 AM EST 1.0 {tablet} active Pr edniSONE 20 MG eCW1 ([facility]) 20 mg 04/25/2020 12:00:00 AM EST tablet 10 TAKE ONE TABLET BY MOUTH EVERY DAY FOR 5 DAYS NEEDED FOR TOE PAIN TAKE ONE TABLET BY MOUTH EVERY DAY FOR 5 DAYS NEEDED FOR TOE PAIN SOLD: 04/25/2020 [facility] Prednisone 20 MG Oral Tablet PredniSONE 20 MG PredniSONE 20 MG 04/25/2020 12:00:00 AM EST 1.0 {tablet} active Pr edniSONE 20 MG eCW1 ([facility]) 25 mg 04/24/2020 12:00:00 AM EST tablet 30 TAKE ONE TABLET BY MOUTH IN THE MORNING WITH FOOD TAKE ONE TABLET BY MOUTH IN THE MORNING WITH FOOD SOLD : 02/28/2021 [facility] 25 mg 04/24/2020 12:00:00 AM EST tablet 30 TAKE ONE TABLET BY MOUTH IN THE MORNING WITH FOOD TAKE ONE TABLET BY MOUTH IN THE MORNING WITH FOOD SOLD : 09/28/2020 [facility] 25 mg 04/24/2020 12:00:00 AM EST tablet 30 TAKE ONE TABLET BY MOUTH IN THE MORNING WITH FOOD TAKE ONE TABLET BY MOUTH IN THE MORNING WITH FOOD SOLD : 11/27/2020 [facility] 25 mg 04/24/2020 12:00:00 AM EST tablet 30 TAKE ONE TABLET BY MOUTH IN THE MORNING WITH FOOD TAKE ONE TABLET BY MOUTH IN THE MORNING WITH FOOD SOLD : 07/28/2020 [facility] 25 mg 04/24/2020 12:00:00 AM EST tablet 30 TAKE ONE TABLET BY MOUTH IN THE MORNING WITH FOOD TAKE ONE TABLET BY MOUTH IN THE MORNING WITH FOOD SOLD : 05/28/2020 [facility] 25 mg 04/24/2020 12:00:00 AM EST tablet 30 TAKE ONE TABLET BY MOUTH IN THE MORNING WITH FOOD TAKE ONE TABLET BY MOUTH IN THE MORNING WITH FOOD SOLD : 12/25/2020 [facility] 25 mg 04/24/2020 12:00:00 AM EST tablet 30 TAKE ONE TABLET BY MOUTH IN THE MORNING WITH FOOD TAKE ONE TABLET BY MOUTH IN THE MORNING WITH FOOD SOLD : 08/23/2020 [facility] 25 mg 04/24/2020 12:00:00 AM EST tablet 30 TAKE ONE TABLET BY MOUTH IN THE MORNING WITH FOOD TAKE ONE TABLET BY MOUTH IN THE MORNING WITH FOOD SOLD : 10/27/2020 [facility] 25 mg 04/24/2020 12:00:00 AM EST tablet 30 TAKE ONE TABLET BY MOUTH IN THE MORNING WITH FOOD TAKE ONE TABLET BY MOUTH IN THE MORNING WITH FOOD SOLD : 04/25/2020 [facility] 25 mg 04/24/2020 12:00:00 AM EST tablet 30 TAKE ONE TABLET BY MOUTH IN THE MORNING WITH FOOD TAKE ONE TABLET BY MOUTH IN THE MORNING WITH FOOD SOLD : 06/24/2020 [facility] 25 mg 04/24/2020 12:00:00 AM EST tablet 30 TAKE ONE TABLET BY MOUTH IN THE MORNING WITH FOOD TAKE ONE TABLET BY MOUTH IN THE MORNING WITH FOOD SOLD : 01/26/2021 [facility] iohexol (OMNIPAQUE) 300 MG/ML contrast injection 100 mL [id number] 02/13/2020 03:30:00 PM EDT 100 mL Intravenous completed 100 mL, Intravenous, 1 TIME IMAGING, 02/13/20 at 1530, For 1 dose, Imaging [facility] Medication administered onsite Furosemide 20 MG Oral Tablet Furosemide 20 MG Oral Tab let (LASIX) Furosemide 20 MG Oral Tablet (LASIX) 02/03/2020 12:00:00 AM EDT [facility] 20 mg 12/08/2019 12:00:00 AM EDT tablet 30 TAKE ONE TABLET BY MOUTH EVERY DAY TAKE ONE TABLET BY MOUTH EVERY DAY SOLD: 05/28/2020 [facility] 20 mg 12/08/2019 12:00:00 AM EDT tablet 30 TAKE ONE TABLET BY MOUTH EVERY DAY TAKE ONE TABLET BY MOUTH EVERY DAY SOLD: 08/28/2020 [facility] 20 mg 12/08/2019 12:00:00 AM EDT tablet 30 TAKE ONE TABLET BY MOUTH EVERY DAY TAKE ONE TABLET BY MOUTH EVERY DAY SOLD: 10/30/2020 [facility] 20 mg 12/08/2019 12:00:00 AM EDT tablet 30 TAKE ONE TABLET BY MOUTH EVERY DAY TAKE ONE TABLET BY MOUTH EVERY DAY SOLD: 03/23/2020 [facility] 20 mg 12/08/2019 12:00:00 AM EDT tablet 30 TAKE ONE TABLET BY MOUTH EVERY DAY TAKE ONE TABLET BY MOUTH EVERY DAY SOLD: 02/05/2020 [facility] 20 mg 11/08/2019 12:00:00 AM EDT tablet 30 TAKE ONE TABLET BY MOUTH EVERY DAY TAKE ONE TABLET BY MOUTH EVERY DAY SOLD: 04/25/2020 [facility] 20 mg 11/08/2019 12:00:00 AM EDT tablet 30 TAKE ONE TABLET BY MOUTH EVERY DAY TAKE ONE TABLET BY MOUTH EVERY DAY SOLD: 01/29/2020 [facility] 20 mg 11/08/2019 12:00:00 AM EDT tablet 30 TAKE ONE TABLET BY MOUTH EVERY DAY TAKE ONE TABLET BY MOUTH EVERY DAY SOLD: 02/25/2020 [facility] 20 mg 11/08/2019 12:00:00 AM EDT tablet 30 TAKE ONE TABLET BY MOUTH EVERY DAY TAKE ONE TABLET BY MOUTH EVERY DAY SOLD: 03/23/2020 [facility] 25 mg 10/26/2019 12:00:00 AM EDT tablet 30 TAKE ONE TABLET BY MOUTH EVERY MORNING WITH FOOD TAKE ONE TABLET BY MOUTH EVERY MORNING WITH FOOD SOLD: 03/23/2020 [facility] 25 mg 10/26/2019 12:00:00 AM EDT tablet 30 TAKE ONE TABLET BY MOUTH EVERY MORNING WITH FOOD TAKE ONE TABLET BY MOUTH EVERY MORNING WITH FOOD SOLD: 02/25/2020 [facility] 25 mg 10/26/2019 12:00:00 AM EDT tablet 30 TAKE ONE TABLET BY MOUTH EVERY MORNING WITH FOOD TAKE ONE TABLET BY MOUTH EVERY MORNING WITH FOOD SOLD: 01/29/2020 [facility] Insurance Providers Payer name Policy type / Coverage type Policy ID Covered republican ID Covered republican's relationship to colaldo Policy Collado Plan Information EMPIRE PLAN [facility] U [id number] Self [id number] EMPIRE PLAN [facility] U [id number] Self [id number] BLUE CARD C [id number] Self [id number] BCBS E[place]IRE [place] DIV [id number] SP [id number] [employer] [id number] Self [id number] RPR- Needs Payer Match [id number] Self [id number] [employer] Commercial [employer] Co. [id number] Self [id number] ANSI-Commercial [id number] [employer] [place] Commercial [id number] Self [id number] [employer] [place] Commercial [id number] Self [id number] [facility] [place] Commercial [id number] Self [id number] [facility] [place] [employer] [id number] Self [id number] [facility] [place] Commercial [id number] Self E[employer]IRE [employer] CHOICE O [id number] S [id number] [facility] EMPIRE PLAN O [id number] S [id number] [employer] O [id number] S [id number] [facility] EMPIRE PLAN O [id number] S [id number] E[employer]IRE [employer] CHOICE O [id number] S [id number] [employer] [id number] SP [id number] BCBS E[employer]IRE [place] DIV [id number] SP [id number] [employer] [id number] SP [id number] BCBS EMPIRE [place] DIV [id number] SP [id number] UNITED [employer] O [id number] S [id number] [employer] [place] Commercial [id number] Self [id number] [employer] [place] Commercial [id number] Self [id number] Problems, Conditions, and Diagnoses Code Display Name Description Problem Type Effective Dates Data Source(s) Z85.528 Personal history of other malignant neop lasm of kidney Personal history of other malignant neoplasm of kidney Diagnosis 07/31/2020 09:26:50 AM EDT [facility] R60.0 [id number] Edema of right lower extremity Problem 09/17/2020 12:00:00 AM EDT eCW1 ([facility]) M10.9 [id number] Podagra Problem 04/25/2020 12:00:00 AM ES T eCW1 ([facility]) G57.91 [id number] Neuropathy of right foot Problem 04/25/2020 12:00:00 AM EST eCW1 ([facility]) Surgeries/Procedures No Information Results ID Date Data Source [id number] 03/18/2021 12:00:00 AM EST [facility] Name Value Range Interpretation Code Description Data Monet rce(s) Supporting Document(s) PCR POSITIVE [facility] This lab was ordered by [facility] are and reported by [facility]. ID Date Data Source [id number] 03/11/2021 09:00:00 PM EST [facility] Name Value Range Interpretation Code Description Data Monet rce(s) Supporting Document(s) SARS coronavirus 2 RNA [Presence] in Res piratory specimen by ELSY with probe detection Not detected [facility] This lab was ordered by [facility] and re ported by [facility]. ID Date Data Source [id number] 03/11/2021 01:00:00 PM EST [facility] Name Value Range Interpretation Code Description Data Monet rce(s) Supporting Document(s) SARS-COV-2 RNA RESP QL ELSY+PROBE Not detected [facility] This lab was ordered by [facility] and reported by [employer] Y[facility]. ID Date Data Source [id number] 03/05/2021 11:00:00 PM EST [facility] Name Value Range Interpretation Code Description Data Monet rce(s) Supporting Document(s) SARS coronavirus 2 RNA [Presence] in Res piratory specimen by ELSY with probe detection Not detected [facility] This lab was ordered by [facility] and re ported by [facility]. ID Date Data Source [id number] 03/05/2021 03:00:00 PM EST [facility] Name Value Range Interpretation Code Description Data Monet rce(s) Supporting Document(s) SARS-COV-2 RNA RESP QL ELSY+PROBE Not detected [facility] This lab was ordered by [facility] Employee Cov id and reported by [employer] ALL. ID Date Data Source [id number] 03/09/2021 08:05:00 PM EST [facility] Name Value Range Interpretation Code Description Data Monet rce(s) Supporting Document(s) 31673-9 Not Detected [facility] A Not Detected (negative) test result fo r this testmeans that SARS-CoV-2 RNA was not present in thespecimen above the limit of detection.A negative result does not rule out the possibilityof COVID-19 and should not be used as thesole basis for treatment or patient managementdecisions. If COVID-19 is still suspected, based onexposure history together with other clinical findings,re-testing should be considered in [facility]. Laboratory test resultsshould always be considered in the context of clinicalobservations and epidemiological data in making afinal diagnosis and patient management decisions.Specimens that are self-collected were not tested withan internal control to confirm that the specimen wasproperly collected. As such, unobserved self-collectedspecimens from SARS-CoV-2 positive individuals mayyield negative results if the specimen was notcollected properly.Please review the "Fact Sheets" and FDA authorizedlabeling available for health care providers andpatients using the following websites:https://www.[employer]/home/Covid-19/HCP/[facility]/fact-sheet2 .htmlhttps://www.[employer]/home/Covid-19/Patients/[facility]/fact-sheet 2.htmlThis test has been authorized by the FDA under anEmergency Use Authorization (EUA) for use by authorizedlaboratories.Methodology: Nucleic Acid Amplification Test (NAAT)includes RT-PCR or TMA ID Date Data Source [id number] 02/26/2021 03:30:00 PM EDT [facility] Name Value Range Interpretation Code Description Data Monet rce(s) Supporting Document(s) SARS coronavirus 2 RNA [Presence] in Res piratory specimen by ELSY with probe detection Not detected [facility] and re [facility]. ID Date Data Source [id number] 02/28/2021 11:52:00 PM EDT [facility] Name Value Range Interpretation Code Description Data Monet rce(s) Supporting Document(s) [id number] NOT DETECTED [facility] A Not Detected (negative) test result fo r this testmeans that SARS- CoV-2 RNA was not present in the specimenabove the limit of detection. A negative result does notrule out the possibility of COVID-19 and should not beused as the sole basis for treatment or patient managementdecisions. If COVID-19 is still suspected, based onexposure history together with other clinical findings,re- testing should be considered [facility]. Laboratory test results shouldalways be considered in the context of clinicalobservations and epidemiological data in making a finaldiagnosis and patient management decisions.Specimens that are self-collected were not tested withan internal control to confirm that the specimen wasproperly collected. As such, unobserved self-collectedspecimens from SARS-CoV-2 positive individuals may yieldnegative results if the specimen was not collected properly.Please review the "Fact Sheets" and FDA authorizedlabeling available for health care pr oviders andpatients using the following websites:[employer]/home/Covid-19/HCP/ft-kari-fbjr-jbjpt1HlmuxNbuzwcpj [employer]/home/Covid-19/Patients/cb-ghaj-ucrt-iaupa5Heav test has been authorized by the FDA under anEmergency Use Authorization (EUA) for use by authorizedlaboratories.Methodology: Nucleic Acid Amplification Test (NAAT)includes RT-PCR or TMA ID Date Data Source [id number] 02/26/2021 08:30:00 AM EDT [facility] Name Value Range Interpretation Code Description Data Monet rce(s) Supporting Document(s) SARS-COV-2 RNA RESP QL ELSY+PROBE Not detected [facility] This lab was ordered by [facility] Employee Cov id and reported by [employer] [place]. ID Date Data Source [id number] 02/18/2021 05:15:00 PM EDT [facility] Name Value Range Interpretation Code Description Data Monet rce(s) Supporting Document(s) SARS coronavirus 2 RNA [Presence] in Res piratory specimen by ELSY with probe detection Not detected [facility] This lab was ordered by [facility] and re ported by [facility]. ID Date Data Source [id number] 02/20/2021 05:33:00 PM EDT [employer] [facility] Name Value Range Interpretation Code Description Data Monet rce(s) Supporting Document(s) 57812-2 NOT DETECTED [facility] A Not Detected (negative) test result fo r this testmeans that SARS- CoV-2 RNA was not present in the specimenabove the limit of detection. A negative result does notrule out the possibility of COVID-19 and should not beused as the sole basis for treatment or patient managementdecisions. If COVID-19 is still suspected, based onexposure history together with other clinical findings,re- testing should be considered in [facility]. Laboratory test results shouldalways be considered in the context of clinicalobservations and epidemiological data in making a finaldiagnosis and patient management decisions.Specimens that are self-collected were not tested withan internal control to confirm that the specimen wasproperly collected. As such, unobserved self-collectedspecimens from SARS-CoV-2 positive individuals may yieldnegative results if the specimen was not collected properly.Please review the "Fact Sheets" and FDA authorizedlabeling available for health care pr oviders andpatients using the following websites:[employer]/home/Covid-19/HCP/ah-shyn-gqhp-rawry3XftavVwxwharf [employer]/home/Covid-19/Patients/pq-zkoh-twmd-gyboq8Xjhi test has been authorized by the FDA under anEmergency Use Authorization (EUA) for use by authorizedlaboratories.Methodology: Nucleic Acid Amplification Test (NAAT)includes RT-PCR or TMA ID Date Data Source [id number] 02/18/2021 10:15:00 AM EDT [facility] Name Value Range Interpretation Code Description Data Monet rce(s) Supporting Document(s) SARS-COV-2 RNA RESP QL ELSY+PROBE Not detected [facility] This lab was ordered by [facility] Employee Cov id and reported by [employer] [place]. ID Date Data Source [id number] 02/14/2021 07:00:00 AM EDT [facility] Name Value Range Interpretation Code Description Data Monet rce(s) Supporting Document(s) SARS coronavirus 2 RNA [Presence] in Res piratory specimen by ELSY with probe detection Not detected [facility] This lab was ordered by [facility] and re ported by [facility]. ID Date Data Source [id number] 02/14/2021 12:00:00 AM EDT [facility] Name Value Range Interpretation Code Description Data Monet rce(s) Supporting Document(s) SARS-COV-2 RNA RESP QL ELSY+PROBE Not detected [facility] This lab was ordered by [facility] Employee Cov id and reported by [employer]. ID Date Data Source [id number] 02/17/2021 09:06:00 PM EDT [facility] Name Value Range Interpretation Code Description Data Monet rce(s) Supporting Document(s) 38530-6 NOT DETECTED [facility] A Not Detected (negative) test result fo r this testmeans that SARS- CoV-2 RNA was not present in the specimenabove the limit of detection. A negative result does notrule out the possibility of COVID-19 and should not beused as the sole basis for treatment or patient managementdecisions. If COVID-19 is still suspected, based onexposure history together with other clinical findings,re- testing should be considered in consultation [facility]. Laboratory test results shouldalways be considered in the context of clinicalobservations and epidemiological data in making a finaldiagnosis and patient management decisions.Specimens that are self-collected were not tested withan internal control to confirm that the specimen wasproperly collected. As such, unobserved self-collectedspecimens from SARS-CoV-2 positive individuals may yieldnegative results if the specimen was not collected properly.Please review the "Fact Sheets" and FDA authorizedlabeling available for health care pr oviders andpatients using the following websites:[employer]/home/Covid-19/HCP/pf-qrfy-cxex-acazn3UbwsmDsaozzgc [employer]/home/Covid-19/Patients/ud-qrgg-zumh-trbzk6Juyw test has been authorized by the FDA under anEmergency Use Authorization (EUA) for use by authorizedlaboratories.Methodology: Nucleic Acid Amplification Test (NAAT)includes RT-PCR or TMA ID Date Data Source PLZ FOOT COMPLETE 10/08/2020 12:00:00 AM EDT [facility]CW1 ([facility]) Name Value Range Interpretation Code Description Data Monet rce(s) Supporting Document(s) PLZ FOOT COMPLETE eCW1 ([facility]) ID Date Data Source PLZ ANKLE COMPLETE 10/08/2020 12:00:00 AM EDT eCW1 ([facility]) Name Value Range Interpretation Code Description Data Monet rce(s) Supporting Document(s) PLZ ANKLE COMPLETE eCW1 ([facility]) ID Date Data Source CBC with Auto Differential 10/08/2020 12:00:00 AM EDT eCW1 ( [facility]) Name Value Range Interpretation Code Description Data Monet rce(s) Supporting Document(s) 6.0 4.0-10.0 WHITE BLOOD COUNT eCW1 ([facility]) 4.70 4.30-6.10 RED BLOOD COUNT eCW1 ([facility]) 14.0 13.5-17.5 HEMOGLOBIN eCW1 ([facility]) 39.6 42.0-52.0 HEMATOCRIT eCW1 ([facility]) 84.3 80.0-96.0 MEAN CORPUSCULAR VOLUME e CW1 ([facility]) 29.8 27.0-33.0 MEAN CORPUSCULAR HEMOGLOB IN eCW1 ([facility]) 35.4 32.0-36.5 MEAN CORPUSCULAR HGB CONC eCW1 ([facility]) 12.6 11.5-14.5 RED CELL DISTRIBUTION WID TH eCW1 ([facility]) 250 150-450 PLATELET COUNT, AUTOMATED eCW1 ([facility]) 68.5 36.0-66.0 NEUTROPHILS % eCW1 ([facility]) 22.2 24.0-44.0 LYMPH % eCW1 ([facility]) 5.5 2.0-8.0 MONO % eCW1 ([facility]) 0.3 0-3.0 IMMATURE GRANULOCYTE % eCW1 ([facility]) 2.8 0.0-3.0 EOS % eCW1 ([facility]) 0.7 0.0-1.0 BASO % eCW1 ([facility]) 0.0 0-0 NUCLEATED RED BLOOD CELL % eCW 1 ([facility]) 4.1 1.5-8.5 NEUTROPHILS # eCW1 ([facility]) 1.3 1.5-5.0 LYMPH # eCW1 ([facility]) 0.3 0.0-0.8 MONO # eCW1 ([facility]) 0.2 0.0-0.5 EOS # eCW1 ([facility]) 0.0 0.0-0.2 BASO # eCW1 ([facility]) ID Date Data Source URIC ACID 10/08/2020 12:00:00 AM EDT eCW1 ([facility]) Name Value Range Interpretation Code Description Data Monet rce(s) Supporting Document(s) 6.5 3.5-7.2 URIC ACID eCW1 ([facility]) ID Date Data Source ERYTHROCYTE SEDIMENTATION RATE 10/08/2020 12:00:00 AM EDT eC W1 ([facility]) Name Value Range Interpretation Code Description Data Monet rce(s) Supporting Document(s) 17 0-15 ERYTHROCYTE SEDIMENTATION RATE eCW1 ([facility]) ID Date Data Source C REACTIVE PROTEIN QUANTITATIV (At [facility]) 10/08/2020 12:00 :00 AM EDT eCW1 ([facility]) Name Value Range Interpretation Code Description Data Monet rce(s) Supporting Document(s) 1.87 0.00-0.30 C REACTIVE PROTEIN QUANTI TATIV eCW1 ([facility]) ID Date Data Source TSH 09/17/2020 12:00:00 AM EDT eCW1 ([facility]) Name Value Range Interpretation Code Description Data Monet rce(s) Supporting Document(s) 1.540 0.358-3.740 THYROID STIMULATING HORM ONE eCW1 ([facility]) ID Date Data Source MAGNESIUM LEVEL 09/17/2020 12:00:00 AM EDT eCW1 ([facility]) Name Value Range Interpretation Code Description Data Monet rce(s) Supporting Document(s) 1.8 1.8-2.4 MAGNESIUM LEVEL W1 ([facility]) ID Date Data Source LIPID PANEL (CARDIAC RISK) 09/17/2020 12:00:00 AM EDT eCW1 ( [facility]) Name Value Range Interpretation Code Description Data Monet rce(s) Supporting Document(s) Cholesterol [Moles/volume] in Serum or Plasma 149 <200 CHOLESTEROL LEVEL eCW1 ([facility]) Cholesterol in HDL [Moles/volume] in Serum or Plasma 43 >40 HDL CHOLESTEROL eCW1 ([facility]) Triglyceride [Mass/volume] in Serum or Plasma by calculation 179 <150 TRIGLYCERIDES LEVEL eCW1 ([facility]) Cholesterol in LDL [Mass/volume] in Serum or Plasma by calculation 70 <100 LDL CHOLESTEROL eCW1 ([facility]) 106 NON-HDL-C eCW1 ([facility]) 3.465 <5 CHOLESTEROL RISK RATIO eCW1 ([facility]) ID Date Data Source HEPATITIS C ANTIBODY INDEX 09/17/2020 12:00:00 AM EDT eCW1 ( [facility]) Name Value Range Interpretation Code Description Data Monet rce(s) Supporting Document(s) 0.0 <0.8 HEPATITIS C VIRUS JENNIFER INDEX eC W1 ([facility]) ID Date Data Source HEPATITIS B SURFACE ANTIGEN 09/17/2020 12:00:00 AM EDT eCW1 ([facility]) Name Value Range Interpretation Code Description Data Monet rce(s) Supporting Document(s) NEGATIVE NEGATIVE HEPATITIS B SURFACE ANTIG EN eCW1 ([facility]) ID Date Data Source HEPATITIS B SURFACE ANTIBODY 09/17/2020 12:00:00 AM EDT eCW1 ([facility]) Name Value Range Interpretation Code Description Data Monet rce(s) Supporting Document(s) POSITIVE POSITIVE HEPATITIS B SURFACE ANTIB DIAN eCW1 ([facility]) ID Date Data Source Comprehensive Metabolic Profile (CMP) 09/17/2020 12:00:00 AM EDT eCW1 ([facility]) Name Value Range Interpretation Code Description Data Monet rce(s) Supporting Document(s) 72 70-100 GLUCOSE, FASTING eCW1 ([facility]) 1.05 0.70-1.30 CREATININE FOR GFR eCW1 ([facility]) 18 7-18 BLOOD UREA NITROGEN eCW1 ([facility]) 3.7 3.5-5.1 POTASSIUM SERUM eCW1 ([facility]) 141 136-145 SODIUM LEVEL eCW1 ([facility]) 104 98-107 CHLORIDE LEVEL eCW1 ([facility]) > 60.0 >60 GLOMERULAR FILTRATION RATE eCW 1 ([facility]) 29 7-37 AST/SGOT eCW1 ([facility]) 31 21-32 CARBON DIOXIDE LEVEL eCW1 ([facility]) 9.0 8.5-10.1 CALCIUM LEVEL eCW1 ([facility]) 7.4 6.4-8.2 TOTAL PROTEIN eCW1 ([facility]) 73 12-78 ALT/SGPT eCW1 ([facility]) 58 45-117 ALKALINE PHOSPHATASE eCW1 ([facility]) 1.2 0.2-1.0 BILIRUBIN,TOTAL eCW1 ([facility]) 4.0 3.2-5.2 ALBUMIN eCW1 ([facility]) 1.2 ALBUMIN/GLOBULIN RATIO eCW1 ([facility]) ID Date Data Source [id number] 08/17/2020 01:11:18 PM EDT [facility] Name Value Range Interpretation Code Description Data Monet rce(s) Supporting Document(s) Progress Note [facility] EYSEQj3aHaSCUfPm10/EAQvmQSLsj5TkEJdeZCc8IBcwHDHmI1CiYZL6rI0jXWY4HLvVLgZfSvZsUVPz lb [file] U+nnoWA1M43TVo+e8/opMlvu+Lhz+fk6kVfsDs+Jose Alfredo [file] AgICAgICAgICAgICAgICAgICAgICAgICAgICAgICAg ICAgICAgICAgICAgICAgICAgICAgDQogICAgICAgICAgICAgICAgICAgICAgICAgICAgICAgICAgICAg ICAgICAgICAgICAgICAgICAgICAgICAgICAgICAgICAgICAgICAgICAgICAgICAgICAgICAgICAgICAg ICAgDQogICAgICAgICAgICAgICAgICAgICAgICAgIC AgICAgICAgICAgICAgICAgICAgICAgICAgICAgICAgICAgICAgICAgICAgICAgICAgICAgICAgICAgIC AgICAgICAgICAgICAgDQogICAgICAgICAgICAgICAgICAgICAgICAgICAgICAgICAgICAgICAgICAgIC AgICAgICAgICAgICAgICAgICAgICAgICAgICAgICAg ICAgICAgICAgICAgICAgICAgICAgICAgDQogICAgICAgICAgICAgICAgICAgICAgICAgICAgICAgICAg ICAgICAgICAgICAgICAgICAgICAgICAgICAgICAgICAgICAgICAgICAgICAgICAgICAgICAgICAgICAg ICAgICAgDQogICAgICAgICAgICAgICAgICAgICAgIC AgICAgICAgICAgICAgICAgICAgICAgICAgICAgICAgICAgICAgICAgICAgICAgICAgICAgICAgICAgIC AgICAgICAgICAgICAgICAgDQogICAgICAgICAgICAgICAgICAgICAgICAgICAgICAgICAgICAgICAgIC AgICAgICAgICAgICAgICAgICAgICAgICAgICAgICAg ICAgICAgICAgICAgICAgICAgICAgICAgICAgDQogICAgICAgICAgICAgICAgICAgICAgICAgICAgICAg ICAgICAgICAgICAgICAgICAgICAgICAgICAgICAgICAgICAgICAgICAgICAgICAgICAgICAgICAgICAg ICAgICAgICAgDQogICAgICAgICAgICAgICAgICAgIC AgICAgICAgICAgICAgICAgICAgICAgICAgICAgICAgICAgICAgICAgICAgICAgICAgICAgICAgICAgIC AgICAgICAgICAgICAgICAgICAgDQogICAgICAgICAgICAgICAgICAgICAgICAgICAgICAgICAgICAgIC AgICAgICAgICAgICAgICAgICAgICAgICAgICAgICAg BLXtBGApQGUvHLEtEGDpRHXmPMOiVTCxGJArGVReEUr0D3usOWNeMGDbSR5kXVy8Xn5+DQoNCmVuZHN0 arQttS8SKY7ug0HmSWucPWNnh6ScLOy6HG4CVYLoRVoxXM7OMUxpby2VTEWlFMKgqEAYz9woYyXoZLF9 YBHlZtiuIC8RPGTuK3alzfFnSWGiVBHBAUkmMGYNKC pnBXJRSRTkMSToGpRdAzTvYHCdOODkZIPQOZH1CKEuPxJaZYxzJJ1Wl5WqsNX4JXh+Tc8IRT5ky1FlVU lzMiCvMM8wcq9XYDpGMfMaR1ViudB9NPQ7DGBoSs4OBNBoJOSzxCYwDUSdAEHTAlTgM9ZomF18OSNNKe 4+XDhaljSpLdrSVfF6HBRgq3SfKSm6TY5ICTXwNQm9 zHYsRMBuW2Ije6UmKg23MXLbLddwM4efFsIZmIApqVMmSUUQYNOcoYZ1GsMsLwLyQiBtVLe6GDIvXN7n PUevWB3CKMJ2DWzfTTLpFKTiW8xZVoTnATAtFPSjqGinHL1NHzQaT7KctdVpiNVbZyEuKLLHEe2+DQpl ytMfFkoKJaG5FRKxb4FrMEq4MV0QPQUePTxwMS0VBQ IboG8kMTcaJP0NEfTuDTCsHETRRxYbW12lnQLjDKw7S4DrCnNjIFRhWrtqOMAnPPrxNfCxIERyViHhTB ogID4+ID4+ZShhIZ4INTtfpzRtWGIhDl4LMHZiWKFuTB2tWRFpDLWlP2O6zErhFLNMRhWdY7huouelKK 9jWTJpT096cPrailZiXNU7CIAwBs8UOVBgHJI7JNRb fJEqWuKuCWUHWBfeCC6VrMBgPWB2iD2xYPlhWLPfCQIgC2lGRlZrsPsbZQ90bFjcalTkgCUsFQk+Pg0K BE8qn5JeFIo2vzBnXPcwRIFvVRpyAUDwAOFtFGEcJAG2GSZ0ZSCBDfPlHCCjRPEkCIrwVSGjREEryu7L OLTwLNDoOOQeUGMuUZAeTBNlITcoHTRmTLHwMIf9SX KxMIXrVH7AJyAeYHTjZUUnDKghAKUsXLMmer6ZJNLcQXMpAbR2AYNnRTJiSQYhJXtrINHpEAYkHSb1AN XhJLYaYD9QJfZlHWHsERF4GzSgDARcFQIoaz6WXUBaISEyEaO1CfFsNWWxPBYgXZefKDJsXVY8MMDcVY QwMJNaPI6GQoXgCXLcGYnaOHUoNOFgSDOnit6VJPUf PSFvXMf3HzBtIONeQHKwZDnmMKXhSJPcSQXtAYFzPDJlKM7ASuXaPMNrZQN1AiipYXKuMAUpgn8NYOHt FODuTOo3RWGkCZSkPLTuXXroSWTlPBA2FHJ8NFCqMLGyTK0ESoHiUMMhJAhdGgSlGIDzZCIddn3WUDTv NKEpZIL4IHNwFYXxKQQzYEwlSAWaCFBhIVNhWLMwSK RbAX2TQdTmYXSnOeF6BDMvVDThHGZrwb9ZMEHqAQZlAlgkRILkUKXkDBMuTWyeOWSpWNJxCEaxLDMdFY TyJS8JLzMpUMEkYfJ3TTAeJZWhEPCray2FQNJuIZFoILZ5CkMmBOMpERDuQHmxYEDiBJW3XrKeVVYyPP HoVT5KCaFjELAkWrH9YuJyKTXsVVWxwf9HMLLlYTRm UXm3SUOlIEOjBPBpXFocKPRcUIG2YfP7UHOmBFRdDV6UDgRzJHXdUnZ7LVGiKRNiPVUkso1CNFNyARMd NzGsDMScRAPjDMXtQNxySHAoALZ0BAQ7GGYuLCTuIL3BRxDqQMWoFkg0VpPiRVGlATUlyf2PWZTaTSWr BfphHFApEXEpBVEvLCwiGIYbCZC0GZL2FKBlELTzIU 9BPqXjATKiDljsMwAxGNPlONUjmb5ICTShHSWgRLMeVtUeWBSfRDKdSYyeGRUaPHW7VxU5KGKqZJXgVG 3TEyWtYREwOXOiHFulNWZxWEHoel1SBCIcZFE7JKN5VOWbBXFjROTqWXprJDUpWBTiUtZ3TLRtTBCwFQ 2WNcUoXIpqOTGOOjn6HUrnM2f7OEO2AW9PC8Pzu9Rj MoanRGUIVLvfSJ6gtuPoFFAkDa6LC1qPZdzsFHPeB6ZpJLGcJvToCRG4SWV6VDYlSTF0CMP1MkV8Xr7u GSM7SODrJZN8AyY7SsCpAOL2GFLjLBExBDhpUKgvMTugHkIoZM3WJc1LJxQ7IHT4wASmGy3LLMQ8YxsQ ZyQySE8OJYx= ID Date Data Source [id number] 08/01/2020 02:15:49 PM EDT [facility] CT ABDOMEN WITH AND WITHOUT CONTRAST [id number] [id number] RESULTInterpreted by:Mikey Velez MDINDICATION: Kidney cancer status post right partial nephrectomy in September 2019.COMPARISON: CT abdomen and pelvis dated 02/13/2020.TECHNIQUE: Helical CT axial scans were performed from the lung bases to the iliac crests before and after the administration of intravenous contrast. Oral contrast was not administered. Subsequently, coronal and sagittal reformations were obtained. Automated dose lowering techniques and/or adjustment according to patient size were utilized for this examination.FINDINGS:LUNGS BASES: The visualized lung bases are clear. The heart is not enlarged.LIVER: Enlarged measuring up to 19.4 cm. Diffuse fatty infiltration of the liver. No focal liver lesions. The intrahepatic biliary ducts are not dilated.SPLEEN: Enlarged measuring up to 14.5 cm.GALLBLADDER: Normal. No radiopaque gallstones. The extrahepatic bile ducts are not dilated. PANCREAS: Diffuse fatty infil tration of the pancreas is noted.. The pancreatic duct is not dilated.ADRENAL GLANDS: Normal.KIDNEYS: Postsurgical changes are again noted along the lateral aspect of the lower pole of the right kidney. Decreased size of focal area of wedge shape hypoattenuation at the surgical bed. There is no evidence of abnormal enhancement at this level. No new renal lesions are seen in the right kidney. No evidence of hydronephrosis.The left kidney demonstrates no focal lesions or hydronephrosis.BOWEL: The visualized portions of the small and large bowel are nondilated. The appendix is normal. Scattered colonic diverticula with no evidence of diverticulitis.LYMPH NODES: No pathologically enlarged lymph nodes.VASCULAR STRUCTURES: The abdominal aorta is nonaneurysmal.FREE AIR OR FREE FLUID: No evidence of free air or free fluid in the visualized portions of the abdomen.OSSEOUS STRUCTURES: Multilevel endplate degenerative changes of the spine. No suspicious osseous lesions.IMPRESSION:1. Postsurgical changes related to right lower pole partial nephrectomy. No evidence for disease recurrence. 2. No definite evidence of metastatic disease.3. Hepatic steatosis with hepatomegaly.4. Splenomegaly.5. Additional findings as described above.This document has been electronically signed by Myriam Palma MD on 08/01/2020 2:13 PM Name Value Range Interpretation Code Description Data [facility] rce(s) Supporting Document(s) ID Date Data Source [id number] 02/17/2020 09:06:18 AM [facility] Name Value Range Interpretation Code Description Data [facility] rce(s) Supporting Document(s) Progress Note [facility] [id number] m [file] [id number]== ID Date Data Source [id number] 02/15/2020 09:20:[address] [facility] [address] ABDOMEN PELVIS WITH AND WITHOUT CONTR AST [id number] RESULTInterpreted by:[place] [facility] [place]:39-year-old male with a history of a right renal mass and partial right nephrectomy, who presents for CT follow- up.TECHNIQUE:Contiguous 5 mm thick multislice axial helical images of the abdomen and pelvis were obtained from the lower thoracic level to the upper femoral level before and after administration of 100 mL of the Omnipaque 300 intravenous contrast utilizing automated exposure control and a renal imaging protocol.No oral contrast was administered, which limits the study with respect of the bowel. 2 mm thick overlapping axial and 3 mm thick sagittal and coronal reconstructed images were obtained from the pre and post contrast axial data sets.8mm overlapping axial MIP reconstructed images were obtained from the delayed post contrast axial data. DLP: 3,821 mGy-cm.COMPARISON:Compared to the prior CT of the abdomen and pelvis dated 07/06/2019.FINDINGS:BASILAR CHEST: The visualized lung bases are clear and there is no evidence of pleural disease. The visualized cardiac structures are grossly normal.LIVER: The liver measures 200 mm in the longitudinal dimension along the midclavicular line present prior 193 mm) and is mildly decreased in density relative to the spleen. There are no focal lesions and the liver is unchanged and otherwise normal.BILIARY TRACT: The gallbladder is normal and there is no evidence of gallstones.The visualized common duct is normal and there is no evidence of intrahepatic ductal dilatation.SPLEEN: The spleen measures 132 mm in longitudinal dimension along the midclavicular line (prior 129 mm) and there are no focal lesions.PANCREAS: There is stable mild fatty involution of the pancreas. There are no masses, inflammatory change or ductal dilatation and the pancreas is unchanged and otherwise normal.ADRENAL GLANDS: The adrenal glands are unchanged and normal.URINARY SYSTEM: There are postsurgical changes of the posterior inferolateral aspect of the right kidney with an ovoid region of residual decreased density adjacent to the postsurgical changes measuring 20 x 16 x 25 mm that measures 34 HU precontrast images, 45 HU on the 60 second postcontrast images and 34 HU on the three-minute postcontrast images.The kidneys are normal in size and there is no evidence of nephrolithiasis, hydronephrosis or perinephric edema.There is normal uptake, concentration and excretion of intravenous contrast throughout the remainder of both kidneys and the intrarenal and extrarenal collecting systems are normal.The bladder is collapsed and cannot be adequately evaluated. The visualized ureters are normal and there is no evidence of ureterolithiasis or bladder stones. GI TRACT: The stomach, duodenum and small bowel are grossly normal and there is no evidence of obstruction. There is stable mild diverticulosis of the sigmoid colon without evidence of diverticulitis. There is a mild amount of stool throughout the colon and the remainder of the large bowel is otherwise grossly normal.The appendix is normal and located within the retrocecal aspect of the mid right pericolic gutter extending superiorly to the inferior hepatic level. REPRODUCTIVE SYSTEM: The prostate gland is normal in density, measuring 29 x 36 x 46 mm and the seminal vesicles are normal.PERITONEAL SPACE: There is no evidence of adenopathy, free air or free fluid.RETROPERITONEAL SPACE: There is no retroperitoneal adenopathy or mass. The abdominal aorta and inferior vena cava are unchanged and normal. BONES AND EXTRA-ABDOMINAL SOFT TISSUES: There is stable mild osteopenia throughout the study. The visualized vertebral bodies, pedicles and posterior lamina are intact and the vertebral body heights are normal.There is stable marked disc space narrowing with moderate degenerative bony endplate change and a mild posterior disc bulge versus disc herniation abutting both descending nerve roots at L5-S1.There is stable moderate disc space narrowing with mild degenerative bony endplate change and a mild posterior disc bulge versus disc herniation at L4-5.There is stable mild degenerative change throughout the thoracolumbar and remaining lumbar regions with loss of lumbar lordosis, a 10 degree mid to lower lumbar levoscoliosis and mild to moderate degenerative change of the lumbar facet joints.There is stable mild degenerative bony changes sacroiliac joints and hip joints and the bony pelvis and sacrum are normal. The muscular and visualized soft tissue structures of the body wall, pelvic and hip regions are normal.IMPRESSION:1. There is an area of mildly enhancing decreased density within the posterior inferolateral aspect of the right kidney adjacent to the postsurgical changes and could represent an area of postsurgical scarring. However, residual disease is not excluded..2. There is no evidence of nephrolithiasis or renal obstruction within either kidney.3. The remainder of both kidneys are unchanged and otherwise normal.4. There is stable mild hepatosplenomegaly and mild fatty change of the liver.5. There is no evidence of adenopathy.6. The prostate gland is at the upper limits of normal in size.7. There is stable mild diverticulosis with no evidence of diverticulitis.8. The remaining solid organs are normal and the remaining bowel is grossly normal.9. There are additional findings as described above.This document has been electronically signed by [place] MD on 02/15/2020 9:18 AM Name Value Range Interpretation Code Description Data [facility] rce(s) Supporting Document(s) Procedure Social History Code Duration Value Status Description Data Source(s ) Smoking 10/08/2020 12:00:00 AM EDT Never Smoker completed Never S moker eCW1 ([facility]) Smoking 10/08/2020 12:00:00 AM EDT Never Smoker completed Never S moker eCW1 ([facility]) Smoking 10/08/2020 12:00:00 AM EDT Never Smoker completed Never S moker eCW1 ([facility]) Smoking 10/08/2020 12:00:00 AM EDT Never Smoker completed Never S moker eCW1 ([facility]) Smoking 10/08/2020 12:00:00 AM EDT Never Smoker completed Never S moker eCW1 ([facility]) Smoking 09/18/2020 12:00:00 AM EDT Never Smoker completed Never S moker eCW1 ([facility]) Alcohol intake 08/17/2020 12:00:00 AM EDT Current drinker of al cohol (finding) completed Current drinker of alcohol (finding) [facility] Tobacco use and exposure 08/17/2020 12:00:00 AM EDT Former user co mpleted Former user [facility] Smoking 08/17/2020 12:00:00 AM EDT Never smoker completed Never s [facility] Smoking 04/25/2020 12:00:00 AM EST Never Smoker completed Never S moker eCW1 ([facility]) Smoking 04/25/2020 12:00:00 AM EST Never Smoker completed Never S moker eCW1 ([facility]) Smoking 04/25/2020 12:00:00 AM EST Never Smoker completed Never S moker eCW1 ([facility]) Smoking 04/25/2020 12:00:00 AM EST Never Smoker completed Never S moker eCW1 ([facility]) Smoking 04/25/2020 12:00:00 AM EST Never Smoker completed Never S moker eCW1 ([facility]) Alcohol intake 02/17/2020 12:00:00 AM EDT Current drinker of al cohol (finding) completed Current drinker of alcohol (finding) [facility] Vital Signs ID Date Data Source UNK Name Value Range Interpretation Code Description Data Source(s) Body weight 377 [lb_av] 377 [lb_av] eCW1 ([facility]) Body height 73 [in_i] 73 [in_i] eCW1 ([facility]) Body mass index (BMI) [Ratio] 49.73 kg/m2 49.73 kg/m2 eCW1 ([facility]) Heart rate 102 /min 102 /min eCW1 ([facility]) Respiratory rate 18 /min 18 /min eCW1 ([facility]) Body temperature 97.9 [degF] 97.9 [degF] eCW1 ( [facility]) Systolic blood pressure 124 mm[Hg] 124 mm[Hg] e CW1 ([facility]) Diastolic blood pressure 82 mm[Hg] 82 mm[Hg] eCW1 ([facility]) Body weight 383.4 [lb_av] 383.4 [lb_av] eCW1 ([facility]) Body height 73 [in_i] 73 [in_i] eCW1 ([facility]) Body mass index (BMI) [Ratio] 50.58 kg/m2 50.58 kg/m2 eCW1 ([facility]) Heart rate 110 /min 110 /min eCW1 ([facility]) Respiratory rate 18 /min 18 /min eCW1 ([facility]) Body temperature 97.7 [degF] 97.7 [degF] eCW1 ( [facility]) Systolic blood pressure 130 mm[Hg] 130 mm[Hg] e CW1 ([facility]) Diastolic blood pressure 78 mm[Hg] 78 mm[Hg] eCW1 ([facility]) Body weight 372.6 [lb_av] 372.6 [lb_av] eCW1 ([facility]) Body height 73 [in_i] 73 [in_i] eCW1 ([facility]) Body mass index (BMI) [Ratio] 49.15 kg/m2 49.15 kg/m2 eCW1 ([facility]) Heart rate 101 /min 101 /min eCW1 ([facility]) Respiratory rate 18 /min 18 /min eCW1 ([facility]) Body temperature 98.2 [degF] 98.2 [degF] eCW1 ( [facility]) Systolic blood pressure 146 mm[Hg] 146 mm[Hg] e CW1 ([facility]) Diastolic blood pressure 94 mm[Hg] 94 mm[Hg] eCW1 ([facility]) Patient Treatment Plan of Care Planned Activity Planned Date Details Description Data Source (s) Losartan Potassium 100 MG Oral Tablet 09/17/2020 12:00:00 AM EDT eCW1 ([facility]) Prednisone 20 MG Oral Tablet 07/10/2020 12:00:00 AM EDT eCW1 ([facility]) Colchicine 0.6 MG Oral Tablet 06/12/2020 12:00:00 AM EST eCW1 ([facility]) Allopurinol 300 MG Oral Tablet 06/12/2020 12:00:00 AM EST eCW1 ([facility]) Colchicine 0.6 MG Oral Tablet 06/12/2020 12:00:00 AM EST eCW1 ([facility]) Allopurinol 300 MG Oral Tablet 06/12/2020 12:00:00 AM EST eCW1 ([facility]) Medrol (Jak) 4 MG 06/04/2020 12:00:00 AM EST eCW1 ([facility]) Prednisone 20 MG Oral Tablet 04/25/2020 12:00:00 AM EST eCW1 ([facility]) Prednisone 20 MG Oral Tablet 04/25/2020 12:00:00 AM EST eCW1 ([facility]) Prednisone 20 MG Oral Tablet 04/25/2020 12:00:00 AM EST eCW1 ([facility]) Prednisone 20 MG Oral Tablet 04/25/2020 12:00:00 AM EST eCW1 ([facility]) Prednisone 20 MG Oral Tablet 04/25/2020 12:00:00 AM EST eCW1 ([facility]) Furosemide 20 MG Oral Tablet 02/03/2020 12:00:00 AM [facility]
[2021-03-29] MEDS ORDERED: LOSA100T50 PO (09:40)
[2021-03-29] MEDS ORDERED: FLOM0.4C39 PO (09:40)
--- NOTE | 2021-03-29 11:30 | REP ---
INDICATION: pain COMPARISON: 09/18/2020. TECHNIQUE: Real time compression and duplex Doppler interrogation of the right lower extremity deep venous system is performed, including the left common femoral vein.Compression of the right peroneal and posterior tibial veins is performed. FINDINGS: The right common femoral, superficial femoral and popliteal veins are fully compressible with transducer pressure and demonstrate normal spontaneous and phasic flow, without evidence of deep venous thrombosis.The left common femoral vein demonstrates no thrombus.The calf veins could not be visualized due to body habitus. IMPRESSION: No evidence of deep venous thrombosis of the right lower extremity femoral popliteal venous system. <Electronically signed by Omari Domínguez > 03/29/21 1126
--- OUTSIDE RECORDS SUMMARY | 2021-03-29 11:30 | CCD ---
Author Author [facility] Organization [facility] Address Unknown Phone Unavailable Care Team Providers Care Farm Appraiser Name Role Phone Cedrick JAMESON MD Unavailable [...] Unavailable Unavailable Thabet, Nagib RPA-C Unavailable Unavailable Jayiln PINA MD Unavailable Unavailable Jaylin PINA MD [...] Unavailable Jaylin PINA MD Unavailable Unavailable Jaylin PNIA MD Unavailable Unavailable Jaylin PINA MD Unavailable [...] Enriquez, Gavin Unavailable Unavailable EANNIELLO, L CHON ZONING ADMINISTRATOR Unavailable Unavailable EANNIELLO, L CHON ZONING ADMINISTRATOR Unavailable Unavailable EANNIELLO, L CHON ZONING ADMINISTRATOR Unavailable Unavailable EANNIELLO, L CHON ZONING ADMINISTRATOR Unavailable Unavailable EANNIELLO, L CHON ZONING ADMINISTRATOR Unavailable Unavailable EANNIELLO, L CHON ZONING ADMINISTRATOR Unavailable Unavailable EANNIELLO, L CHON ZONING ADMINISTRATOR Unavailable Unavailable EANNIELLO, L CHON ZONING ADMINISTRATOR Unavailable Unavailable EANNIELLO, L CHON ZONING ADMINISTRATOR Unavailable Unavailable EANNIELLO, L CHON ZONING ADMINISTRATOR Unavailable Unavailable EANNIELLO, L CHON ZONING ADMINISTRATOR Unavailable Unavailable EANNIELLO, L CHON ZONING ADMINISTRATOR Unavailable Unavailable EANNIELLO, L CHON ZONING ADMINISTRATOR Unavailable Unavailable EANNIELLO, L CHON ZONING ADMINISTRATOR Unavailable Unavailable EANNIELLO, L CHON ZONING ADMINISTRATOR Unavailable Unavailable EANNIELLO, L CHON ZONING ADMINISTRATOR Unavailable Unavailable EANNIELLO, L CHON ZONING ADMINISTRATOR Unavailable Unavailable EANNIELLO, L CHON ZONING ADMINISTRATOR Unavailable Unavailable EANNIELLO, L CHON ZONING ADMINISTRATOR Unavailable Unavailable EANNIELLO, L CHON ZONING ADMINISTRATOR Unavailable Unavailable EANNIELLO, L CHON ZONING ADMINISTRATOR Unavailable Unavailable EANNIELLO, L CHON ZONING ADMINISTRATOR Unavailable Unavailable EANNIELLO, L CHON ZONING ADMINISTRATOR Unavailable Unavailable EANNIELLO, L CHON ZONING ADMINISTRATOR Unavailable Unavailable EANNIELLO, L CHON ZONING ADMINISTRATOR Unavailable Unavailable EANNIELLO, L CHON ZONING ADMINISTRATOR Unavailable Unavailable EANNIELLO, L CHON ZONING ADMINISTRATOR Unavailable Unavailable EANNIELLO, L CHON ZONING ADMINISTRATOR Unavailable Unavailable EANNIELLO, L CHON ZONING ADMINISTRATOR Unavailable Unavailable EANNIELLO, L CHON ZONING ADMINISTRATOR Unavailable Unavailable EANNIELLO, L CHON ZONING ADMINISTRATOR Unavailable Unavailable EANNIELLO, L CHON ZONING ADMINISTRATOR Unavailable Unavailable EANNIELLO, L CHON ZONING ADMINISTRATOR Unavailable Unavailable EANNIELLO, L CHON ZONING ADMINISTRATOR Unavailable Unavailable EANNIELLO, L CHON ZONING ADMINISTRATOR Unavailable Unavailable Re-disclosure Warning The records that [...] is protected by Article 27-F of the [facility] Public Health law. If you continue you may have access to information: Regarding HIV / AIDS; Provided by facilities licensed or operated by the [facility] Office of Mental Health; or Provided by the [facility] Office for People With Developmental Disabilities. If such information is present, then the following [facility] mandated warning applies: This information has [...] law may result in a fine or longterm sentence or both. A general authorization for [...] Attender: Gavin Enriquez 05/20/2021 12:00:[address] [facility] Attender: Ginger Bailey RPA-C 05/2020 12:00:07 PM EDT - 12/27/2020 01:24:01 PM EDT [facility] ([facility]) [place] [address] [facility] [facility] [facility] [address] 11/26/2020 12:00:00 AM EDT eCW1 ([facility]) [place] [address] [facility] [address] 10/09/2020 12:00:00 AM EDT eCW1 ([facility]) Outpatient [address] [facility] [address] 10/08/2020 12:00:00 AM EDT eCW1 ([facility]) Unknown [address] [facility] [facility] [address] 10/08/2020 12:00:00 AM EDT eCW1 ([facility]) Outpatient Attender: BLANCA JAMESON MD 10/05 12:41:42 PM EDT - 10/05/2020 02:10:11 PM EDT [facility] ([facility] ) [place] [address] [facility] [facility] [address] 10/05/2020 12:00:00 AM EDT eCW1 ([facility]) Outpatient [address] [facility] [address] 09/17/2020 12:00:00 AM EDT eCW1 ([facility]) Outpatient Attender: Gavin Enriquez [id number] 12:00:00 AM EDT - 08/17/2020 09:34:29 AM [facility] Outpatient Referrer: CHON BRANCH NP 07/31/2020 1 2:00:00 AM EDT Personal history of other malignant neoplasm of kidney [facility] Personal history of other malignant neop lasm of kidney [place] [address] [facility] [address] 07/10/2020 12:00:00 AM EDT eCW1 ([facility]) Unknown [address] [facility] [place] [address] 06/12/2020 12:00:00 AM EST eCW1 ([facility]) [place] [address] [facility] [place] [address] 06/04/2020 12:00:00 AM EST eCW1 ([facility]) Unknown [address] [facility] [place] [address] 05/01/2020 12:00:00 AM EST eCW1 ([facility]) Outpatient [address] [facility] [place] [address] 04/25/2020 12:00:00 AM EST eCW1 ([facility]) Outpatient Attender: Gavin EnriquezReferrer: NGA Tom [id number] 02/17/2020 12:00:00 AM [facility] Outpatient Referrer: Gavin Enriquez 02/15/2020 12:00:00 AM [facility] Outpatient Referrer: Gavin Enriquez 02/13/2020 12:00:0 0 AM EDT Malignant neoplasm of right kidney, except renal pelvis [facility] Malignant neoplasm of right kidney, exce [...] active Lo sartan Potassium 100 MG eCW1 ([facility]) Losartan Potassium 100 MG Oral Tablet Losartan Potassium 100 MG 09/17/2020 12:00:00 AM EDT 1.0 {tablet} active Lo sartan Potassium 100 MG eCW1 ([facility]) Losartan Potassium 100 MG Oral Tablet Losartan Potassium 100 MG 09/17/2020 12:00:00 AM EDT 1.0 {tablet} active Lo sartan Potassium 100 MG eCW1 ([facility]) Losartan Potassium 100 MG Oral Tablet Losartan Potassium 100 MG 09/17/2020 12:00:00 AM EDT 1.0 {tablet} active Lo sartan Potassium 100 MG eCW1 ([facility]) Losartan Potassium 100 MG Oral Tablet Losartan Potassium 100 MG 09/17/2020 12:00:00 AM EDT 1.0 {tablet} active Lo sartan Potassium 100 MG eCW1 ([facility]) Losartan Potassium 100 MG Oral Tablet Losartan Potassium 100 MG 09/17/2020 12:00:00 AM EDT 1.0 {tablet} active Lo sartan Potassium 100 MG eCW1 ([facility]) 10 mg 08/08/2020 12:00:00 AM EDT tablet 15 TAKE ONE TABLET BY MOUTH EVERY 8 HOURS NEEDED FOR PAIN TAKE ONE TABLET BY MOUTH EVERY 8 HOURS A S NEEDED FOR PAIN SOLD: 08/09/2020 [facility] iohexol (OMNIPAQUE) 300 MG/ML contrast injection 100 mL 1776 07/31/2020 10:30:00 AM EDT 100 mL Intravenous completed 100 mL, Intravenous, 1 TIME IMAGING, [facility] 07/31/20 at 1030, For 1 dose, Imaging [facility] Medication administered onsite 0.6 mg 07/11/2020 [...] {tablet} active Pr edniSONE 20 MG eCW1 ([facility]) 300 mg 06/13/2020 12:00:00 AM [...] AM EST active Allopurinol 300 MG eCW1 ([facility]) Allopurinol 300 MG Oral Tablet Allopurinol 300 MG 06/12/2020 12:00: 00 AM EST active Allopurinol 300 MG eCW1 ([facility]) Allopurinol 300 MG Oral Tablet Allopurinol 300 MG 06/12/2020 12:00: 00 AM EST active Allopurinol 300 MG eCW1 ([facility]) Allopurinol 300 MG Oral Tablet Allopurinol 300 MG 06/12/2020 12:00: 00 AM EST active Allopurinol 300 MG eCW1 ([facility]) Allopurinol 300 MG Oral Tablet Allopurinol 300 MG 06/12/2020 12:00: 00 AM EST active Allopurinol 300 MG eCW1 ([facility]) Colchicine 0.6 MG Oral Tablet Colchicine 0.6 MG 06/12/2020 12:00:00 AM EST 1.0 {tablet} active Colchicine 0.6 MG eCW1 ([facility]) Allopurinol 300 MG Oral Tablet Allopurinol 300 MG 06/12/2020 12:00: 00 AM EST active Allopurinol 300 MG eCW1 ([facility]) Colchicine 0.6 MG Oral Tablet Colchicine 0.6 MG 06/12/2020 12:00:00 AM EST 1.0 {tablet} active Colchicine 0.6 MG eCW1 ([facility]) Allopurinol 300 MG Oral Tablet Allopurinol 300 MG 06/12/2020 12:00: 00 AM EST active Allopurinol 300 MG eCW1 ([facility]) Allopurinol 300 MG Oral Tablet Allopurinol 300 MG 06/12/2020 12:00: 00 AM EST active Allopurinol 300 MG eCW1 ([facility]) Medrol (Jak) 4 MG Medrol (Jak) 4 MG 06/04/2020 12:00:00 AM EST active Medrol (Jak) 4 MG eCW1 ([facility]) 4 mg 06/04/2020 12:00:00 [...] {tablet} active Pr edniSONE 20 MG eCW1 ([facility]) Prednisone 20 MG Oral Tablet PredniSONE 20 MG PredniSONE 20 MG 04/25/2020 12:00:00 AM EST 1.0 {tablet} active Pr edniSONE 20 MG eCW1 ([facility]) Prednisone 20 MG Oral Tablet PredniSONE 20 MG PredniSONE 20 MG 04/25/2020 12:00:00 AM EST 1.0 {tablet} active Pr edniSONE 20 MG eCW1 ([facility]) Prednisone 20 MG Oral Tablet PredniSONE 20 MG PredniSONE 20 MG 04/25/2020 12:00:00 AM EST 1.0 {tablet} active Pr edniSONE 20 MG eCW1 ([facility]) 20 mg 04/25/2020 12:00:00 AM [...] {tablet} active Pr edniSONE 20 MG eCW1 ([facility]) 25 mg 04/24/2020 12:00:00 AM [...] 02/13/20 at 1530, For 1 dose, Imaging [facility] Medication administered onsite Furosemide 20 MG Oral Tablet Furosemide 20 MG Oral Tab let (LASIX) Furosemide 20 MG Oral Tablet (LASIX) 02/03/2020 12:00:00 AM EDT [facility] 20 mg 12/08/2019 12:00:00 AM EDT tablet [...] type / Coverage type Policy ID Covered libertarian ID Covered libertarian's relationship to collado Policy Collado Plan Information EMPIRE PLAN [facility] U [id number] Self [id number] EMPIRE PLAN [facility] U [id number] Self [id number] BLUE CARD C [id number] Self [id number] BCBS [place] [place] DIV [id number] SP [id number] [place] [employer] [id number] Self [id number] RPR- Needs Payer Match [id number] Self [id number] [employer] [id number] Self [id number] ANSI-Commercial [id number] [place] [employer] [place] [employer] [id number] Self [id number] [place] [employer] [place] [employer] [id number] Self [id number] [facility] [place] [employer] [id number] Self [id number] [facility] Commercial [id number] Self [id number] [facility] [place] Commercial [id number] Self EMPIRE HEALTH CHOICE O [id number] S [id number] [facility] EMPIRE PLAN O [id number] S Y [id number] [employer] O [id number] S [id number] [facility] EMPIRE PLAN O [id number] S [id number] E[employer] CHOICE O [id number] S [id number] [employer] [id number] SP [id number] BCBS [employer] [place] DIV [id number] SP [id number] [employer]ARE [id number] SP [id number] BCBS [employer] [place] DIV [id number] SP [id number] UNITED [employer] O [id number] S [id number] [place] [employer] [place] [employer] [id number] Self [id number] [place] [employer] [place] [employer] [id number] Self [id number] Problems, Conditions, and Diagnoses Code Display Name Description Problem Type Effective Dates Data Source(s) Z85.528 Personal history of other malignant neop lasm of kidney Personal history of other malignant neoplasm of kidney Diagnosis 07/31/2020 09:26:50 AM T [facility] R60.0 [id number] Edema of right lower extremity Problem 09/17/2020 12:00:00 AM EDT eCW1 ([facility]) M10.9 [id number] Podagra Problem 04/25/2020 12:00:00 AM ES T eCW1 ([facility]) G57.91 [id number] Neuropathy of right foot Problem 04/25/2020 12:00:00 AM EST eCW1 ([facility]) Surgeries/Procedures No Information Results ID Date Data Source [id number] 03/18/2021 12:00:00 AM EST [facility] Name Value Range Interpretation Code Description Data Monet rce(s) Supporting Document(s) PCR POSITIVE [facility] This lab was ordered by [facility] and reported by [facility]. ID Date Data Source [id number] 03/11/2021 09:00:00 PM EST [facility] Name Value Range Interpretation Code Description Data Monet rce(s) Supporting Document(s) SARS coronavirus 2 RNA [Presence] in Res piratory specimen by ELSY with probe detection Not detected [facility] This lab was ordered by [facility] and re ported by [facility]. ID Date Data Source [id number] 03/11/2021 01:00:00 PM EST [facility] Name Value Range Interpretation Code Description Data Monet rce(s) Supporting Document(s) SARS-COV-2 RNA RESP QL ELSY+PROBE Not detected [facility] This lab was ordered by [facility] and reported by [facility]. ID Date Data Source [id number] 03/05/2021 11:00:00 PM EST [facility] Name Value Range Interpretation Code Description Data Monet rce(s) Supporting Document(s) SARS coronavirus 2 RNA [Presence] in Res piratory specimen by ELSY with probe detection Not detected [facility] This lab was ordered by [facility] and re ported by [facility]. ID Date Data Source [id number] 03/05/2021 03:00:00 PM EST [facility] Name Value Range Interpretation Code Description Data Monet rce(s) Supporting Document(s) SARS-COV-2 RNA RESP QL ELSY+PROBE Not detected [facility] This lab was ordered by [facility] Employee Cov id and reported by [facility]. ID Date Data Source [id number] 03/09/2021 08:05:00 PM EST [facility] Name Value Range Interpretation Code Description Data Monet rce(s) Supporting Document(s) 59429-2 Not Detected [facility] A Not Detected [...] clinical findings,re-testing should be [place] [facility] health [facility]. Laboratory test resultsshould always be [...] health care providers andpatients using the following websites:https://www.[employer]com/home/Covid-19/HCP/[facility]/fact-sheet2 .htmlhttps://www.[employer]Tellja/home/Covid-19/Patients/[facility]/fact-sheet 2.htmlThis test has been authorized by the FDA under anEmergency Use Authorization (EUA) for use by authorizedlaboratories.Methodology: Nucleic Acid Amplification Test (NAAT)includes RT-PCR or TMA ID Date Data Source [id number] 02/26/2021 03:30:00 PM EDT [facility] Name Value Range Interpretation Code Description Data Monet rce(s) Supporting Document(s) SARS coronavirus 2 RNA [Presence] in Res piratory specimen by ELSY with probe detection Not detected [facility] This lab was ordered by [facility] and re ported by [facility]. ID Date Data Source [id number] 02/28/2021 11:52:00 PM EDT [facility] Name Value Range Interpretation Code Description Data Monet rce(s) Supporting Document(s) 98424-9 NOT DETECTED [facility] A Not Detected [...] findings,re- testing should be [place] [facility] [place] [facility] [place]. Laboratory test results shouldalways be [...] care pr oviders andpatients using the following websites:[employer]/home/Covid-19/HCP/vt-mtsv-wmgl-zmtfl1UlrusXngmebsaHomeJab/home/Covid-19/Patients/ct-dbyy-uqbh-puota2Jkmz test has been authorized by the FDA under anEmergency Use Authorization (EUA) for use by authorizedlaboratories.Methodology: Nucleic Acid Amplification Test (NAAT)includes RT-PCR or TMA ID Date Data Source [id number] 02/26/2021 08:30:00 AM EDT [facility] Name Value Range Interpretation Code Description Data Monet rce(s) Supporting Document(s) SARS-COV-2 RNA RESP QL ELSY+PROBE Not detected [facility] This lab was ordered by [facility] Employee Cov id and reported by [facility]. ID Date Data Source [id number] 02/18/2021 05:15:00 PM EDT [facility] Name Value Range Interpretation Code Description Data Monet rce(s) Supporting Document(s) SARS coronavirus 2 RNA [Presence] in Res piratory specimen by ELSY with probe detection Not detected [facility] This lab was ordered by [facility] and re ported by [facility]. ID Date Data Source [id number] 02/20/2021 05:33:00 PM EDT [facility] Name Value Range Interpretation Code Description Data Monet rce(s) Supporting Document(s) 11065-7 NOT DETECTED [facility] A Not Detected [...] findings,re- testing should be considered [place] [facility] [place]. Laboratory test results shouldalways be [...] care pr oviders andpatients using the following websites:[employer]/home/Covid-19/HCP/ti-jyop-ozgg-rkhmc8LrfcvIgaxiidr [employer]/home/Covid-19/Patients/kj-nbcl-tjyi-cfghg9Eewf test has been authorized by the FDA under anEmergency Use Authorization (EUA) for use by authorizedlaboratories.Methodology: Nucleic Acid Amplification Test (NAAT)includes RT-PCR or TMA ID Date Data Source [id number] 02/18/2021 10:15:00 AM EDT [facility] Name Value Range Interpretation Code Description Data Monet rce(s) Supporting Document(s) SARS-COV-2 RNA RESP QL ELSY+PROBE Not detected [facility] This lab was ordered by [facility] Employee Cov id and reported by [facility]. ID Date Data Source [id number] 02/14/2021 07:00:00 AM EDT [facility] Name Value Range Interpretation Code Description Data Monet rce(s) Supporting Document(s) SARS coronavirus 2 RNA [Presence] in Res piratory specimen by ELSY with probe detection Not detected [facility] This lab was ordered by [facility] and re ported by [facility]. ID Date Data Source [id number] 02/14/2021 12:00:00 AM EDT [facility] Name Value Range Interpretation Code Description Data Monet rce(s) Supporting Document(s) SARS-COV-2 RNA RESP QL ELSY+PROBE Not detected [facility] This lab was ordered by [facility] Employee Cov id and reported by [employer]. ID Date Data Source [id number] 02/17/2021 09:06:00 PM EDT [facility] Name Value Range Interpretation Code Description Data Monet rce(s) Supporting Document(s) 25310-5 NOT DETECTED [facility] A Not Detected [...] findings,re- testing should be [place] [facility] [place]. Laboratory test results shouldalways be [...] care pr oviders andpatients using the following websites:[facility]/home/Covid-19/HCP/hu-dhbn-zdkw-ogyim6VyyzrPtowkkiu [employer]/home/Covid-19/Patients/in-ctys-yoft-ojutu4Ubqh test has been authorized by the FDA under anEmergency Use Authorization (EUA) for use by authorizedlaboratories.Methodology: Nucleic Acid Amplification Test (NAAT)includes RT-PCR or TMA ID Date Data Source PLZ FOOT COMPLETE 10/08/2020 12:00:00 AM EDT eCW1 ([facility]) Name Value Range Interpretation Code Description Data Monet rce(s) Supporting Document(s) PLZ FOOT COMPLETE eCW1 ([facility]) ID Date Data Source PLZ ANKLE COMPLETE 10/08/2020 12:00:00 AM EDT eCW1 ([facility]) Name Value Range Interpretation Code Description Data Monet rce(s) Supporting Document(s) PLZ ANKLE COMPLETE eCW1 ([facility]) ID Date Data Source CBC with Auto Differential 10/08/2020 12:00:00 AM EDT eCW1 ( [facility]) Name Value Range Interpretation Code Description Data Monet rce(s) Supporting Document(s) 6.0 4.0-10.0 WHITE BLOOD COUNT eCW1 ([facility]) 4.70 4.30-6.10 RED BLOOD COUNT eCW1 ([facility]) 14.0 13.5-17.5 HEMOGLOBIN eCW1 ([facility]) 39.6 42.0-52.0 HEMATOCRIT eCW1 ([facility]) 84.3 80.0-96.0 MEAN CORPUSCULAR VOLUME e CW1 ([facility]) 29.8 27.0-33.0 MEAN CORPUSCULAR HEMOGLOB IN eCW1 ([facility]) 35.4 32.0-36.5 MEAN CORPUSCULAR HGB CONC eCW1 ([facility]) 12.6 11.5-14.5 RED CELL DISTRIBUTION WID TH eCW1 ([facility]) 250 150-450 PLATELET COUNT, AUTOMATED eCW1 ([facility]) 68.5 36.0-66.0 NEUTROPHILS % eCW1 ([facility]) 22.2 24.0-44.0 LYMPH % eCW1 ([facility]) 5.5 2.0-8.0 MONO % eCW1 ([facility]) 0.3 0-3.0 IMMATURE GRANULOCYTE % eCW1 ([facility]) 2.8 0.0-3.0 EOS % eCW1 ([facility]) 0.7 0.0-1.0 BASO % eCW1 ([facility]) 0.0 0-0 NUCLEATED RED BLOOD CELL % eCW 1 ([facility]) 4.1 1.5-8.5 NEUTROPHILS # eCW1 ([facility]) 1.3 1.5-5.0 LYMPH # eCW1 ([facility]) 0.3 0.0-0.8 MONO # eCW1 ([facility]) 0.2 0.0-0.5 EOS # eCW1 ([facility]) 0.0 0.0-0.2 BASO # eCW1 ([facility]) ID Date Data Source URIC ACID 10/08/2020 12:00:00 AM EDT eCW1 ([facility]) Name Value Range Interpretation Code Description Data Monet rce(s) Supporting Document(s) 6.5 3.5-7.2 URIC ACID eCW1 ([facility]) ID Date Data Source ERYTHROCYTE SEDIMENTATION RATE 10/08/2020 12:00:00 AM EDT eC W1 ([facility]) Name Value Range Interpretation Code Description Data Monet rce(s) Supporting Document(s) 17 0-15 ERYTHROCYTE SEDIMENTATION RATE eCW1 ([facility]) ID Date Data Source C REACTIVE PROTEIN QUANTITATIV ([facility]) 10/08/2020 12:00 :00 AM EDT eCW1 ([facility]) Name Value Range Interpretation Code Description Data Monet rce(s) Supporting Document(s) 1.87 0.00-0.30 C REACTIVE PROTEIN QUANTI TATIV eCW1 ([facility]) ID Date Data Source TSH 09/17/2020 12:00:00 AM EDT eCW1 ([facility]) Name Value Range Interpretation Code Description Data Monet rce(s) Supporting Document(s) 1.540 0.358-3.740 THYROID STIMULATING HORM ONE eCW1 ([facility]) ID Date Data Source MAGNESIUM LEVEL 09/17/2020 12:00:00 AM EDT eCW1 ([facility]) Name Value Range Interpretation Code Description Data Monet rce(s) Supporting Document(s) 1.8 1.8-2.4 MAGNESIUM LEVEL W1 ([facility]) ID Date Data Source LIPID PANEL (CARDIAC RISK) 09/17/2020 12:00:00 AM EDT eCW1 ( [facility]) Name Value Range Interpretation Code Description Data Monet rce(s) Supporting Document(s) Cholesterol [Moles/volume] in Serum or Plasma 149 <200 CHOLESTEROL LEVEL eCW1 ([facility]) Cholesterol in HDL [Moles/volume] in Serum or Plasma 43 >40 HDL CHOLESTEROL eCW1 ([facility]) Triglyceride [Mass/volume] in Serum or Plasma by calculation 179 <150 TRIGLYCERIDES LEVEL eCW1 ([facility]) Cholesterol in LDL [Mass/volume] in Serum or Plasma by calculation 70 <100 LDL CHOLESTEROL eCW1 ([facility]) 106 NON-HDL-C eCW1 ([facility]) 3.465 <5 CHOLESTEROL RISK RATIO eCW1 ([facility]) ID Date Data Source HEPATITIS C ANTIBODY INDEX 09/17/2020 12:00:00 AM EDT eCW1 ( [facility]) Name Value Range Interpretation Code Description Data Monte rce(s) Supporting Document(s) 0.0 <0.8 HEPATITIS C VIRUS JENNIFER INDEX eC W1 ([facility]) ID Date Data Source HEPATITIS B SURFACE ANTIGEN 09/17/2020 12:00:00 AM EDT eCW1 ([facility]) Name Value Range Interpretation Code Description Data Monet rce(s) Supporting Document(s) NEGATIVE NEGATIVE HEPATITIS B SURFACE ANTIG EN eCW1 ([facility]) ID Date Data Source HEPATITIS B SURFACE ANTIBODY 09/17/2020 12:00:00 AM EDT eCW1 ([facility]) Name Value Range Interpretation Code Description Data Monet rce(s) Supporting Document(s) POSITIVE POSITIVE HEPATITIS B SURFACE ANTIB DIAN eCW1 ([facility]) ID Date Data Source Comprehensive Metabolic Profile (CMP) 09/17/2020 12:00:00 AM EDT eCW1 ([facility]) Name Value Range Interpretation Code Description Data Monet rce(s) Supporting Document(s) 72 70-100 GLUCOSE, FASTING eCW1 ([facility]) 1.05 0.70-1.30 CREATININE FOR GFR eCW1 ([facility]) 18 7-18 BLOOD UREA NITROGEN eCW1 ([facility]) 3.7 3.5-5.1 POTASSIUM SERUM eCW1 ([facility]) 141 136-145 SODIUM LEVEL eCW1 ([facility]) 104 98-107 CHLORIDE LEVEL eCW1 ([facility]) > 60.0 >60 GLOMERULAR FILTRATION RATE eCW 1 ([facility]) 29 7-37 AST/SGOT eCW1 ([facility]) 31 21-32 CARBON DIOXIDE LEVEL eCW1 ([facility]) 9.0 8.5-10.1 CALCIUM LEVEL eCW1 ([facility]) 7.4 6.4-8.2 TOTAL PROTEIN eCW1 ([facility]) 73 12-78 ALT/SGPT eCW1 ([facility]) 58 45-117 ALKALINE PHOSPHATASE eCW1 ([facility]) 1.2 0.2-1.0 BILIRUBIN,TOTAL eCW1 ([facility]) 4.0 3.2-5.2 ALBUMIN eCW1 ([facility]) 1.2 ALBUMIN/GLOBULIN RATIO eCW1 ([facility]) ID Date Data Source [id number] 08/17/2020 01:11:18 PM EDT [facility] Name Value Range Interpretation Code Description Data Monet rce(s) Supporting Document(s) Progress Note [facility] CQBPVh2mRnRCFjBo33/TKRxxKUAul0OfNSjgNAn0XGnpJVFxO5NgLGR1vL4fQPG3HGeFMtQzCrCoUKZc lbm [file] U+bsbWH2O82JFh+e8/opMlvu+Lhz+od8aNijEe+Jose Alfredo [file] AgICAgICAgICAgICAgICAgICAgICAgICAgICAgICAg ICAgICAgICAgICAgICAgICAgICAgDQogICAgICAgICAgICAgICAgICAgICAgICAgICAgICAgICAgICAg ICAgICAgICAgICAgICAgICAgICAgICAgICAgICAgICAgICAgICAgICAgICAgICAgICAgICAgICAgICAg ICAgDQogICAgICAgICAgICAgICAgICAgICAgICAgIC AgICAgICAgICAgICAgICAgICAgICAgICAgICAgICAgICAgICAgICAgICAgICAgICAgICAgICAgICAgIC AgICAgICAgICAgICAgDQogICAgICAgICAgICAgICAgICAgICAgICAgICAgICAgICAgICAgICAgICAgIC AgICAgICAgICAgICAgICAgICAgICAgICAgICAgICAg ICAgICAgICAgICAgICAgICAgICAgICAgDQogICAgICAgICAgICAgICAgICAgICAgICAgICAgICAgICAg ICAgICAgICAgICAgICAgICAgICAgICAgICAgICAgICAgICAgICAgICAgICAgICAgICAgICAgICAgICAg ICAgICAgDQogICAgICAgICAgICAgICAgICAgICAgIC AgICAgICAgICAgICAgICAgICAgICAgICAgICAgICAgICAgICAgICAgICAgICAgICAgICAgICAgICAgIC AgICAgICAgICAgICAgICAgDQogICAgICAgICAgICAgICAgICAgICAgICAgICAgICAgICAgICAgICAgIC AgICAgICAgICAgICAgICAgICAgICAgICAgICAgICAg ICAgICAgICAgICAgICAgICAgICAgICAgICAgDQogICAgICAgICAgICAgICAgICAgICAgICAgICAgICAg ICAgICAgICAgICAgICAgICAgICAgICAgICAgICAgICAgICAgICAgICAgICAgICAgICAgICAgICAgICAg ICAgICAgICAgDQogICAgICAgICAgICAgICAgICAgIC AgICAgICAgICAgICAgICAgICAgICAgICAgICAgICAgICAgICAgICAgICAgICAgICAgICAgICAgICAgIC AgICAgICAgICAgICAgICAgICAgDQogICAgICAgICAgICAgICAgICAgICAgICAgICAgICAgICAgICAgIC AgICAgICAgICAgICAgICAgICAgICAgICAgICAgICAg MNEhOMNoTAJhEBSrHSUdPEHsWMIvIKJdDTVyTFGxCWx7M5ldEBJsSRNfIC4sKIy9Ty8+DQoNCmVuZHN0 vsUhxJ4HTQ4fe7DmECwmHGTug2OrJMk9CX4QVMOqOBqkVO4RBNznxg5WKWIjCPSjxXLSx7llJtPnCQA6 PPGzXsgeTE0SRWJlX8lczrPgRDRaVMHVTNkkLEEPAF liVMLXXXKsEGBiLvYyTtXxHGEsJDQzDNCWZBC2ZWUqQlUtTPamKJ5Gk6BqdQH0ASj+Fb8KCX1zq0IoLH hcTdNrEU4cru4VUGdVSpRnE2AdnnT4IAQ4DZGaMt0KUMKxMGKfqNWiYCNhRBCBPpPrI8CavW27VYEODv 4+PFykmeAaZdoVUnV9PLVzd1JbEZu8LN4CTECjCKd9 mKKjRNStB0Tqc8CnOd64UAXkGwznX1yfZmBMbPUutPByJUABSPZjhQZ2TwVtMdQqCsMgTTx8KWClBJ1y APkgRN5ZDIZ5TNtrCUDcWVNwS6dNQdTzDOJzKQJbgXdjNC4LJhNyU8KjqnBpiUGkXbAhESBAYy1+DQpl qqOoIyhRWoU7ULBmr8EgOHq2PI7XKVZcGVqmOK8KXV SiuL1gITmxLB6ULlOxJYDkCFOTHmZyI09dlBNhWRq9V9TeHkWySSQeIoaqGPOdZJwtGoYsGLYcCjYvTL ogID4+ID4+QDjiWJ3HUCsnlfBvOCRjCp7RWZUnFNQtSM6dDTYpGXEbC0B8rLsrXKRUXgWcW3nfrevzIV 6pLFJwY136hHmearQeFUY6MGBvLz5UWTLySOQ7CFKp aIObIdIvRWJNAYfuTS6UoLWzQBY9gF6gCKkiJGAhGUCkM2pHBfUqqDacBU21cBvkzaMuuBVlFCp+Pg0K MQ6rb0WoDWy2coEeEDseKZNaZHoiFSHaRRTsFRLcUYG1CHZ6NPFIWbQnVIGiUWRoWFtjSTKzAZBmvv2U JBAnINQyLTJkXEZyPPLhLBVwTZdiFYHnLBLbYRa1QU MlRDWeED5TDnHzQCYnIFWgVAhdHBUaOGZolg4VHICrFCMqNlR5EESnODPaPIUdIMiqYCEfPGIuYRc1OA BeMJQyML0SOrLpPUNcTHT3BmFjCVOkJSKtyf0PBEQiINSfRlO9PnIaQYVpMBCsCXsmIMRmAHS6XIYrRZ GiSBDwAQ6IHkTeJWSgYSgaNOTtKKUmMTGnxp6VWZZq UFCwNMw4NwYvIRCaLLOkWQsyNRDcSZKwUHFsRFRqHJBhZL9QXwUhIFRjKLL0IctjUNAjFSTdnk9SUHFa ZTFzWFa1YRFlWEYxGOIyDJbeYISkCUY9FAP7EENtWPKlPF1VZgFmOPAsYKcjBvFyUHUeEZTamj8JYRWg BHRxHEM2NUZiQSOdNFEvCQwcUTNlXDWfMTCmUNFrLT PoNC4BOnNjEYReHhU3NBFrDYKyEYGitm1TYENaXUDpLnwiIMKyYWGzWKKuFTztCBFdEOBnCEclPYMvHF VqNK5BQbRcNRMiMhW4QEGkPFAuEMDrzw8UJOQrLBCiUCF2KpVgYDVyRLVdBDpvXPGoWMW0PjKcKNCeMM OzRC7PLrZrBBXgAjX9XqGwVCFuPHWsjl4MNFUyQMBc MRc9YYOnKWAmDLZlJCtaQZZcRHF8AxT1LFXlAJStGH4JXwVhZZOiSbX8YSKkLJNlRSZoqn2AWZKuRKHp BlNiFUEtQXBvKICyLVdbOFXvSFD0MWV7APFxYBBkDI7MRtGbMMZtLqu3RkHhUBWlFIIctq5JGDJoWCZw KmvvUCArMZQjJZPtRMkfHMQcAER0HBL9VXWzPLOdHV 2ZNdGcWURbVnnjXmMqRCPyYUSrxk5GPHMoBMRgNINvArFiIPXaIMYiYNxlGNFlKZW3LaB4YSTcIHEmGB 1UBvYiUAHtORSpCSloFQVaDKKyhg5OSQUyWOC7EAH9TFApKJHxNATsKZatKTLtVMHmPpY0XATrIPDcVG 6ZSeDkVAdaSZALItr8ORpkZ0g6VEI8AK2BN6Amq5Kg PxqeSRVGVGurHU7wkbSsDJYuSn5VC7iEDzqvNTHsF0NsXUEbRmEaFHZ7LFG7SCByJVB3URS4YaQ4Vq2r VFM9WRDhKLW8BuW0CtNlVUT4FGNuFWHqJLudWNqqROhcDmAqKU0QOy7HVyY6DRR6vUFuFh6FLIF3DkzP QvHqFS4ZWHj= ID Date Data Source [id number] 08/01/2020 02:15:49 PM EDT [facility] CT ABDOMEN WITH AND WITHOUT CONTRAST [...] rce(s) Supporting Document(s) ID Date Data Source [id number] 02/17/2020 09:06:18 AM [facility] Name Value Range Interpretation Code Description Data [facility] rce(s) Supporting Document(s) Progress Note [facility] HVAHZc4zTeJTClBd74/XLMqzMCCzt6LuXZfhZPq4BHmhKLZuC1ZfYHI0lW4mPSH0CHdEOgQxObClORRk m [file] k+CR5uDCi+Wk3Xb9XrhzY9oyCnLZt4NBR2DZ3HGNSUG1ELWn== ID Date Data Source [id number] 02/15/2020 09:20:50 AM [facility] CT ABDOMEN PELVIS WITH AND WITHOUT CONTR AST [id number] RESULTInterpreted by:[place] [facility]:39-year-old male with a history of a [...] Never Smoker completed Never S moker eCW1 ([facility]) Smoking 10/08/2020 12:00:00 AM EDT Never Smoker completed Never S moker eCW1 ([facility]) Smoking 10/08/2020 12:00:00 AM EDT Never Smoker completed Never S moker eCW1 ([facility]) Smoking 10/08/2020 12:00:00 AM EDT Never Smoker completed Never S moker eCW1 ([facility]) Smoking 10/08/2020 12:00:00 AM EDT Never Smoker completed Never S moker eCW1 ([facility]) Smoking 09/18/2020 12:00:00 AM EDT Never Smoker completed Never S moker eCW1 ([facility]) Alcohol intake 08/17/2020 12:00:00 AM EDT Current drinker of al cohol (finding) completed Current drinker of alcohol (finding) [facility] Tobacco use and exposure 08/17/2020 12:00:00 AM EDT Former user co mpleted Former user [facility] Smoking 08/17/2020 12:00:00 AM EDT Never smoker completed Never s [facility] Smoking 04/25/2020 12:00:00 AM EST Never Smoker completed Never S moker eCW1 ([facility]) Smoking 04/25/2020 12:00:00 AM EST Never Smoker completed Never S moker eCW1 ([facility]) Smoking 04/25/2020 12:00:00 AM EST Never Smoker completed Never S moker eCW1 ([facility]) Smoking 04/25/2020 12:00:00 AM EST Never Smoker completed Never S moker eCW1 ([facility]) Smoking 04/25/2020 12:00:00 AM EST Never Smoker completed Never S moker eCW1 ([facility]) Alcohol intake 02/17/2020 12:00:00 AM EDT Current drinker of al cohol (finding) completed Current drinker of alcohol (finding) [facility] Vital Signs ID Date Data Source UNK Name Value Range Interpretation Code Description Data Source(s) Body weight 377 [lb_av] 377 [lb_av] eCW1 ([facility]) Body height 73 [in_i] 73 [in_i] eCW1 ([facility]) Body mass index (BMI) [Ratio] 49.73 kg/m2 49.73 kg/m2 eCW1 ([facility]) Heart rate 102 /min 102 /min eCW1 ([facility]) Respiratory rate 18 /min 18 /min eCW1 ([facility]) Body temperature 97.9 [degF] 97.9 [degF] eCW1 ( [facility]) Systolic blood pressure 124 mm[Hg] 124 mm[Hg] e CW1 ([facility]) Diastolic blood pressure 82 mm[Hg] 82 mm[Hg] eCW1 ([facility]) Body weight 383.4 [lb_av] 383.4 [lb_av] eCW1 ([facility]) Body height 73 [in_i] 73 [in_i] eCW1 ([facility]) Body mass index (BMI) [Ratio] 50.58 kg/m2 50.58 kg/m2 eCW1 ([facility]) Heart rate 110 /min 110 /min eCW1 ([facility]) Respiratory rate 18 /min 18 /min eCW1 ([facility]) Body temperature 97.7 [degF] 97.7 [degF] eCW1 ( [facility]) Systolic blood pressure 130 mm[Hg] 130 mm[Hg] e CW1 ([facility]) Diastolic blood pressure 78 mm[Hg] 78 mm[Hg] eCW1 ([facility]) Body weight 372.6 [lb_av] 372.6 [lb_av] eCW1 ([facility]) Body height 73 [in_i] 73 [in_i] eCW1 ([facility]) Body mass index (BMI) [Ratio] 49.15 kg/m2 49.15 kg/m2 eCW1 ([facility]) Heart rate 101 /min 101 /min eCW1 ([facility]) Respiratory rate 18 /min 18 /min eCW1 ([facility]) Body temperature 98.2 [degF] 98.2 [degF] eCW1 ( [facility]) Systolic blood pressure 146 mm[Hg] 146 mm[Hg] e CW1 ([facility]) Diastolic blood pressure 94 mm[Hg] 94 mm[Hg] eCW1 ([facility]) Patient Treatment Plan of Care Planned Activity Planned Date Details Description Data Source (s) Losartan Potassium 100 MG Oral Tablet 09/17/2020 12:00:00 AM EDT eCW1 ([facility]) Prednisone 20 MG Oral Tablet 07/10/2020 12:00:00 AM EDT eCW1 ([facility]) Colchicine 0.6 MG Oral Tablet 06/12/2020 12:00:00 AM EST eCW1 ([facility]) Allopurinol 300 MG Oral Tablet 06/12/2020 12:00:00 AM EST eCW1 ([facility]) Colchicine 0.6 MG Oral Tablet 06/12/2020 12:00:00 AM EST eCW1 ([facility]) Allopurinol 300 MG Oral Tablet 06/12/2020 12:00:00 AM EST eCW1 ([facility]) Medrol (Jak) 4 MG 06/04/2020 12:00:00 AM EST eCW1 ([facility]) Prednisone 20 MG Oral Tablet 04/25/2020 12:00:00 AM EST eCW1 ([facility]) Prednisone 20 MG Oral Tablet 04/25/2020 12:00:00 AM EST eCW1 ([facility]) Prednisone 20 MG Oral Tablet 04/25/2020 12:00:00 AM EST eCW1 ([facility]) Prednisone 20 MG Oral Tablet 04/25/2020 12:00:00 AM EST eCW1 ([facility]) Prednisone 20 MG Oral Tablet 04/25/2020 12:00:00 AM EST eCW1 ([facility]) Furosemide 20 MG Oral Tablet 02/03/2020 12:00:00 AM [facility]
[2021-03-29 12:42] LABS: BASO % 0.3 % (0.0-1.0); EOS # 0.2 10^3/uL (0.0-0.5); EOS % 1.7 % (0.0-3.0); HEMATOCRIT 37.3 % (42.0-52.0); HEMOGLOBIN 12.9 g/dl (13.5-17.5); LYMPH # 1.1 10^3/uL (1.5-5.0); LYMPH % 11.8 % (24.0-44.0); MEAN CORPUSCULAR HEMOGLOBIN 28.7 pg (27.0-33.0); MEAN CORPUSCULAR HGB CONC 34.6 g/dl (32.0-36.5); MEAN CORPUSCULAR VOLUME 83.1 fl (80.0-96.0); MONO # 0.5 10^3/uL (0.0-0.8); MONO % 5.7 % (2.0-8.0); NEUTROPHILS # 7.4 10^3/uL (1.5-8.5); PLATELET COUNT, AUTOMATED 253 10^3/uL (150-450); RED BLOOD COUNT 4.49 10^6/uL (4.30-6.10); WHITE BLOOD COUNT 9.3 10^3/uL (4.0-10.0)
[2021-03-29 13:02] LABS: INR 1.08; PROTHROMBIN TIME 14.5 SECONDS (12.7-14.5)
[2021-03-29 13:03] LABS: PARTIAL THROMBOPLASTIN TIME 26.9 SECONDS (25.9-37.0)
[2021-03-29 13:12] LABS: ALBUMIN 3.3 GM/DL (3.2-5.2); BILIRUBIN,DIRECT 0.4 MG/DL (0.0-0.2); BILIRUBIN,TOTAL 1.2 MG/DL (0.2-1.0); C REACTIVE PROTEIN QUANTITATIV 10.4 MG/DL (0.00-0.30); TOTAL PROTEIN 7.7 GM/DL (6.4-8.2)
[2021-03-29 13:34] LABS: ERYTHROCYTE SEDIMENTATION RATE 56 mm/hr (0-15)
[2021-03-29] MEDS ORDERED: POTASSIUM CHLORIDE 10MEQ SR TABLET PO ONE (13:40)
[2021-03-29] MEDS ORDERED: ISOVUE-370 76% 100ML VIAL As Ordered ONE (14:01)
--- NOTE | 2021-03-29 14:43 | REP ---
INDICATION: cp hx dvt. COMPARISON: CT abdomen 06/13/2019. TECHNIQUE: CT angiogram chest performed following the intravenous administration of 100 cc of Isovue 370. Sagittal and coronal reconstruction images are performed. FINDINGS: Lungs: There is mild left lower lobe atelectasis/infiltrate. The right lung is clear. Mediastinum: No adenopathy. Pulmonary arteries: No evidence of pulmonary embolism. Robyn: No adenopathy. Axilla: No adenopathy. Pleura: No effusion. Heart: Not enlarged. Thoracic aorta: No aneurysm or dissection. Upper abdominal structures: Unremarkable. Visualized osseous structures: Unremarkable. IMPRESSION: No CT evidence of pulmonary embolism. Mild left lower lobe infiltrate/atelectasis. <Electronically signed by Omari Domínguez > 03/29/21 [id number]
[2021-03-29] MEDS ORDERED: PRED20TA PO (15:05)
[2021-03-29] MEDS ORDERED: AMOX875T2 PO (15:05)
[2021-03-29 15:27] VITALS: BP 135/86
--- NOTE | 2021-03-30 07:30 | ECGEPIP ---
[facility] - ED Test Date: 2021-03-29 Pat Name: RASHIDA PALMA Department: Room: - Gender: Male [employer] Supervisor: KALE : 1980 Requested By: CHARLENE BURDEN PA-C Order Number: [id number] Reading MD: Livia Waggoner Measurements Intervals [place] Rate: 87 P: 46 WA: 186 QRS: -19 QRSD: 102 T: -1 QT: 362 QTc: 435 Interpretive Statements Normal sinus rhythm NSTTW abnormalities No prior Electronically Signed on 03-30-2021 7:29:48 EST by Livia Waggoner
== END 2021-03-29 15:29 | disposition home or self-care (01) ==
LOC: M ED 09:20
DX: I80.01 Phlebitis and thrombophlebitis of superficial vessels of right lower extremity (principal); J18.9 Pneumonia, unspecified organism; E87.6 Hypokalemia; R00.2 Palpitations; I10 Essential (primary) hypertension; Z86.711 Personal history of pulmonary embolism; Z87.39 Personal history of other diseases of the musculoskeletal system and connective tissue; Z90.5 Acquired absence of kidney
CPT/HCPCS: 36415; 71275; 80047; 80076; 85025; 85610; 85652; 85730; 86140; 93005; 93971; 99284; Q9967

== ENCOUNTER → 2022-03-03 | Outpatient (CLI) | payer BC, OTHER ==
[~2022-03-03] MED LIST changes: +AMOX875T2 PO; +FLOM0.4C39 PO; +LOSA100T45 PO; +PRED20TA PO
== END ==
LOC: M RAD 09:14
PROVIDERS: ATTEND Physician Assistant
DX: R60.0 Localized edema (principal)

== ENCOUNTER → 2022-03-25 | Outpatient (CLI) | payer BC, OTHER ==
[2022-03-25 15:15] LABS: BASO % 0.5 % (0.0-1.0); EOS # 0.3 10^3/uL (0.0-0.5); HEMATOCRIT 43.9 % (42.0-52.0); HEMOGLOBIN 14.7 g/dl (13.5-17.5); LYMPH # 1.7 10^3/uL (1.5-5.0); LYMPH % 22.4 % (24.0-44.0); MEAN CORPUSCULAR HEMOGLOBIN 28.8 pg (27.0-33.0); MEAN CORPUSCULAR HGB CONC 33.5 g/dl (32.0-36.5); MEAN CORPUSCULAR VOLUME 85.9 fl (80.0-96.0); MONO # 0.6 10^3/uL (0.0-0.8); MONO % 7.9 % (2.0-8.0); NEUTROPHILS # 4.9 10^3/uL (1.5-8.5); NEUTROPHILS % 64.7 % (36.0-66.0); PLATELET COUNT, AUTOMATED 243 10^3/uL (150-450); RED BLOOD COUNT 5.11 10^6/uL (4.30-6.10); WHITE BLOOD COUNT 7.6 10^3/uL (4.0-10.0)
[2022-03-25 15:24] LABS: ALBUMIN 3.8 G/DL (3.2-5.2); CHLORIDE LEVEL 98 MMOL/L (98-107); POTASSIUM SERUM 4.2 MMOL/L (3.5-5.1); SODIUM LEVEL 138 MMOL/L (136-145)
[2022-03-25 15:25] LABS: CARBON DIOXIDE LEVEL 34 MMOL/L (20-31)
[2022-03-25 15:29] LABS: BLOOD UREA NITROGEN 22 MG/DL (9-23); TRIGLYCERIDES LEVEL 93 MG/DL (<150)
[2022-03-25 15:30] LABS: ALKALINE PHOSPHATASE 64 U/L (46-116); CALCIUM LEVEL 9.1 MG/DL (8.5-10.1); GLUCOSE, FASTING 140 MG/DL (60-100)
[2022-03-25 15:31] LABS: ALT/SGPT 43 U/L (7.0-40)
[2022-03-25 15:32] LABS: AST/SGOT 27 U/L (<34); BILIRUBIN,TOTAL 0.9 MG/DL (0.3-1.2); CHOLESTEROL LEVEL 154 MG/DL (<200); CREATININE FOR GFR 0.92 MG/DL (0.70-1.30); GLOMERULAR FILTRATION RATE > 60.0 (>60); HDL CHOLESTEROL 49.6 MG/DL (>40); LDL CHOLESTEROL 85.8 MG/DL (<100); NON-HDL-C 104 MG/DL; TOTAL PROTEIN 7.1 G/DL (5.7-8.2)
[2022-03-25 15:36] LABS: THYROID STIMULATING HORMONE 1.901 uIU/ML (0.55-4.78)
[2022-03-25 17:32] LABS: HEMOGLOBIN A1c 5.7 % (4.0-6.0)
== END ==
LOC: M PLALAB 08:30
PROVIDERS: ATTEND Physician Assistant
DX: I10 Essential (primary) hypertension (principal); R60.0 Localized edema; E66.01 Morbid (severe) obesity due to excess calories; G62.9 Polyneuropathy, unspecified
CPT/HCPCS: 36415; 80053; 80061; 83036; 84443; 85025; G0103

== ENCOUNTER → 2023-11-18 | Outpatient (REF) | payer BC, OTHER ==
[~2023-11-18] MED LIST changes: -LOSA100T45 PO; +LOSA100T46 PO
[2023-11-18 13:59] LABS: BLOOD UREA NITROGEN 17 MG/DL (9-23); CALCIUM LEVEL 8.8 MG/DL (8.5-10.1); CARBON DIOXIDE LEVEL 32 MMOL/L (20-31); CHLORIDE LEVEL 106 MMOL/L (98-107); CREATININE FOR GFR 0.94 MG/DL (0.70-1.30); GLOMERULAR FILTRATION RATE > 60.0 (>60); GLUCOSE, FASTING 124 MG/DL (60-100); SODIUM LEVEL 141 MMOL/L (136-145)
== END ==
LOC: M LABDRWAD 13:17
PROVIDERS: ATTEND Urology
DX: C64.1 Malignant neoplasm of right kidney, except renal pelvis (principal)

== ENCOUNTER → 2023-12-07 | Outpatient (CLI) | payer BC ==
[2023-12-07 13:21] LABS: BASO % 0.7 % (0.0-1.0); EOS # 0.3 10^3/uL (0.0-0.5); EOS % 4.8 % (0.0-3.0); HEMATOCRIT 41.2 % (42.0-52.0); HEMOGLOBIN 14.1 g/dl (13.5-17.5); LYMPH # 1.3 10^3/uL (1.5-5.0); LYMPH % 23.3 % (24.0-44.0); MEAN CORPUSCULAR HEMOGLOBIN 29.7 pg (27.0-33.0); MEAN CORPUSCULAR HGB CONC 34.2 g/dl (32.0-36.5); MEAN CORPUSCULAR VOLUME 86.9 fl (80.0-96.0); MONO # 0.4 10^3/uL (0.0-0.8); MONO % 7.4 % (2.0-8.0); NEUTROPHILS # 3.4 10^3/uL (1.5-8.5); NEUTROPHILS % 63.4 % (36.0-66.0); PLATELET COUNT, AUTOMATED 188 10^3/uL (150-450); RED BLOOD COUNT 4.74 10^6/uL (4.30-6.10); WHITE BLOOD COUNT 5.4 10^3/uL (4.0-10.0)
[2023-12-07 13:33] LABS: HEMOGLOBIN A1c 5.6 % (4.0-6.0)
[2023-12-07 13:53] LABS: FREE T4 0.97 NG/DL (0.89-1.76)
[2023-12-07 13:57] LABS: THYROID STIMULATING HORMONE 2.295 uIU/ML (0.55-4.78)
[2023-12-07 14:01] LABS: ALBUMIN 3.8 G/DL (3.2-5.2); ALKALINE PHOSPHATASE 67 U/L (46-116); ALT/SGPT 73 U/L (7.0-40); AST/SGOT 47 U/L (<34); BILIRUBIN,TOTAL 1.4 MG/DL (0.3-1.2); BLOOD UREA NITROGEN 18 MG/DL (9-23); CALCIUM LEVEL 9.1 MG/DL (8.5-10.1); CARBON DIOXIDE LEVEL 26 MMOL/L (20-31); CHLORIDE LEVEL 107 MMOL/L (98-107); CHOLESTEROL LEVEL 165 MG/DL (<200); CHOLESTEROL RISK RATIO 3.79 (<5); CREATININE FOR GFR 0.92 MG/DL (0.70-1.30); GLOMERULAR FILTRATION RATE > 60.0 (>60); GLUCOSE, FASTING 118 MG/DL (60-100); HDL CHOLESTEROL 43.5 MG/DL (>40); LDL CHOLESTEROL 102.9 MG/DL (<100); NON-HDL-C 121.5 MG/DL; POTASSIUM SERUM 4.6 MMOL/L (3.5-5.1); SODIUM LEVEL 137 MMOL/L (136-145); TOTAL PROTEIN 7.3 G/DL (5.7-8.2); TRIGLYCERIDES LEVEL 93 MG/DL (<150)
== END ==
LOC: M PLALAB 10:18
PROVIDERS: ATTEND Nurse Practitioner Family
DX: E78.2 Mixed hyperlipidemia (principal); I10 Essential (primary) hypertension

== ENCOUNTER → 2023-12-16 | Outpatient (CLI) | payer BC ==
[2023-12-16 13:10] LABS: BASO # 0.1 10^3/uL (0.0-0.2); BASO % 0.5 % (0.0-1.0); EOS # 0.3 10^3/uL (0.0-0.5); EOS % 3.2 % (0.0-3.0); HEMATOCRIT 38.5 % (42.0-52.0); HEMOGLOBIN 14.2 g/dl (13.5-17.5); LYMPH # 1.4 10^3/uL (1.5-5.0); LYMPH % 13.2 % (24.0-44.0); MEAN CORPUSCULAR HEMOGLOBIN 33.8 pg (27.0-33.0); MEAN CORPUSCULAR VOLUME 91.7 fl (80.0-96.0); MONO # 0.7 10^3/uL (0.0-0.8); NEUTROPHILS # 7.3 10^3/uL (1.5-8.5); NEUTROPHILS % 71.4 % (36.0-66.0); PLATELET COUNT, AUTOMATED 270 10^3/uL (150-450); WHITE BLOOD COUNT 10.2 10^3/uL (4.0-10.0)
[2023-12-16 13:29] LABS: MEAN CORPUSCULAR HGB CONC 36.9 g/dl (32.0-36.5)
[2023-12-16 13:39] LABS: ALBUMIN 3.3 G/DL (3.2-5.2); ALKALINE PHOSPHATASE 93 U/L (46-116); ALT/SGPT 38 U/L (7.0-40); AST/SGOT 32 U/L (<34); BILIRUBIN,TOTAL 2.5 MG/DL (0.3-1.2); BLOOD UREA NITROGEN 22 MG/DL (9-23); CALCIUM LEVEL 9.1 MG/DL (8.5-10.1); CARBON DIOXIDE LEVEL 30 MMOL/L (20-31); CHLORIDE LEVEL 102 MMOL/L (98-107); CREATININE FOR GFR 0.84 MG/DL (0.70-1.30); GLOMERULAR FILTRATION RATE > 60.0 (>60); GLUCOSE, FASTING 108 MG/DL (60-100); POTASSIUM SERUM 3.8 MMOL/L (3.5-5.1); SODIUM LEVEL 139 MMOL/L (136-145); TOTAL PROTEIN 7.5 G/DL (5.7-8.2)
== END ==
LOC: M PLAIMG 10:01
PROVIDERS: ATTEND Nurse Practitioner Family
DX: J18.9 Pneumonia, unspecified organism (principal)

== ENCOUNTER → 2024-04-30 | Outpatient (CLI) | payer BC ==
[2024-04-30 12:59] LABS: BASO % 0.6 % (0.0-1.0); EOS # 0.3 10^3/uL (0.0-0.5); EOS % 5.2 % (0.0-3.0); HEMATOCRIT 42.8 % (42.0-52.0); LYMPH # 1.6 10^3/uL (1.5-5.0); LYMPH % 24.4 % (24.0-44.0); MEAN CORPUSCULAR HEMOGLOBIN 29.7 pg (27.0-33.0); MEAN CORPUSCULAR VOLUME 84.8 fl (80.0-96.0); MONO # 0.5 10^3/uL (0.0-0.8); MONO % 7.6 % (2.0-8.0); NEUTROPHILS # 4.1 10^3/uL (1.5-8.5); NEUTROPHILS % 61.9 % (36.0-66.0); PLATELET COUNT, AUTOMATED 206 10^3/uL (150-450); RED BLOOD COUNT 5.05 10^6/uL (4.30-6.10); WHITE BLOOD COUNT 6.6 10^3/uL (4.0-10.0)
[2024-04-30 13:25] LABS: ALKALINE PHOSPHATASE 91 U/L (40-129); ALT/SGPT 63 U/L (7.0-40); AST/SGOT 36 U/L (<34); BILIRUBIN,TOTAL 1.8 MG/DL (0.3-1.2); BLOOD UREA NITROGEN 16 MG/DL (9-23); CALCIUM LEVEL 9.6 MG/DL (8.5-10.1); CARBON DIOXIDE LEVEL 34 MMOL/L (20-31); CHLORIDE LEVEL 100 MMOL/L (98-107); CHOLESTEROL LEVEL 189 MG/DL (<200); CHOLESTEROL RISK RATIO 3.53 (<5); CREATININE FOR GFR 0.82 MG/DL (0.70-1.30); GLOMERULAR FILTRATION RATE > 60.0 (>60); GLUCOSE, FASTING 135 MG/DL (60-100); HDL CHOLESTEROL 53.4 MG/DL (>40); LDL CHOLESTEROL 115.4 MG/DL (<100); NON-HDL-C 135.6 MG/DL; POTASSIUM SERUM 4.2 MMOL/L (3.5-5.1); SODIUM LEVEL 139 MMOL/L (136-145); TOTAL PROTEIN 7.9 G/DL (5.7-8.2); TRIGLYCERIDES LEVEL 101 MG/DL (<150)
== END ==
LOC: M LAB 12:34
PROVIDERS: ATTEND Nurse Practitioner Family
DX: I10 Essential (primary) hypertension (principal); E66.9 Obesity, unspecified

== ENCOUNTER → 2025-03-08 | Outpatient (CLI) | payer BC ==
[~2025-03-08] MED LIST changes: -COLC0.6T47 PO; +COLC0.6T53 PO; -FLOM0.4C39 PO; +TAMS-18 PO
[2025-03-08 14:12] LABS: BASO # 0.1 10^3/uL (0.0-0.2); BASO % 0.7 % (0.0-1.0); EOS # 0.3 10^3/uL (0.0-0.5); EOS % 4.4 % (0.0-3.0); LYMPH # 1.5 10^3/uL (1.5-5.0); LYMPH % 20.9 % (24.0-44.0); MONO # 0.5 10^3/uL (0.0-0.8); MONO % 7.4 % (2.0-8.0); NEUTROPHILS # 4.9 10^3/uL (1.5-8.5); NEUTROPHILS % 66.3 % (36.0-66.0); PLATELET COUNT, AUTOMATED 244 10^3/uL (150-450)
[2025-03-08 14:13] LABS: ALT/SGPT 16 U/L (7.0-40); AST/SGOT 16 U/L (<34); CALCIUM LEVEL 9.4 MG/DL (8.5-10.1); CARBON DIOXIDE LEVEL 31 MMOL/L (20-31); CHLORIDE LEVEL 103 MMOL/L (98-107); CHOLESTEROL LEVEL 143 MG/DL (<200); CHOLESTEROL RISK RATIO 3.78 (<5); CREATININE FOR GFR 0.96 MG/DL (0.70-1.30); GLOMERULAR FILTRATION RATE > 90.0 (>60); LDL CHOLESTEROL 92.0 MG/DL (<100); NON-HDL-C 105.2 MG/DL; POTASSIUM SERUM 4.5 MMOL/L (3.5-5.1); SODIUM LEVEL 143 MMOL/L (136-145); TRIGLYCERIDES LEVEL 66 MG/DL (<150)
[2025-03-08 14:31] LABS: ESTIMATED AVERAGE GLUCOSE 97.0 MG/DL (60-110)
== END ==
LOC: M LABDRWAD 09:47
PROVIDERS: ATTEND Nurse Practitioner Family
DX: I10 Essential (primary) hypertension (principal); E66.9 Obesity, unspecified